=== PATIENT | female | born 1995 | race Caucasian/White ===

== ENCOUNTER 2019-04-03 10:19 | Emergency (ER) | payer BC, OTHER, SELFPAY ==
[2019-04-03 10:27] VITALS: BP 102/59; PULSE 59; RESP 16; TEMP 36.8; O2SAT 100
--- NOTE | 2019-04-03 10:40 | ED.URI ---
HPI - URI/Sore Throat General Chief Complaint: Upper Respiratory Infection Stated Complaint: sore throat/cough/stuffy nose Time Seen by Provider: 04/03/19 10:42 Source: patient and RN notes reviewed Mode of arrival: ambulatory Limitations: no limitations History of Present Illness HPI Narrative: 24 female presents with 3-day history of cough, sore throat, runny nose, chills. Reports she was exposed to influenza A. Denies taking any lnse-vib-ghxdjam medications. MD elicited complaint: sore throat Related Data Home Medications Medication Instructions Recorded Confirmed norethindrone-e.estradiol-iron tablet 04/03/19 [03/23 (28)] Allergies Allergy/AdvReac Type Severity Reaction Status Date / Time latex Allergy Mild Verified 09/10/17 17:40 CEPHALEXIN MONOHYDRATE Allergy Unknown Uncoded 09/10/17 17:40 Review of Systems Review of Systems: Narrative: CONSTITUTIONAL: Reports malaise, chills. Denies sweats, or fever. EYES: Denies visual changes, redness, or discharge. ENT: Reports rhinorrhea, congestion, sore throat. Denies sinus pain, otalgiat. CARDIOVASCULAR: Denies chest pain, palpitations, or edema. RESPIRATORY: Reports cough, worse at night. Denies dyspnea. GASTROINTESTINAL: Denies abdominal pain, nausea, vomiting, diarrhea SKIN: Denies rash or itching. MUSCULOSKELETAL: Denies myalgia. NEUROLOGIC: Denies headache. All systems reviewed & are unremarkable except as noted in HPI and below PMFSH Comments At time of signature, agree with nursing past medical, surgical, social and family history. There is no relevant family history pertinent to the presenting complaint Exam Narrative: Exam Narrative: GENERAL: Well-appearing, well-nourished, and in no acute distress. HEAD: Normocephalic, atraumatic. EYES: PERRLA, conjunctivae clear, and EOMI. ENT: Nares clear, turbinates edematous and erythematous, clear discharge. Mucous membranes moist. TM pearly burton with dull light reflex bilaterally; no tragal tenderness. Oropharynx erythematous without lesions. Tonsils not enlarged and without exudate, no drooling, no hoarseness, no trismus. NECK: Supple. No lymphadenopathy CHEST: Clear to auscultation, breath sounds equal. No wheezing, rhonchi, rales, or stridor. No respiratory distress, speaks in full sentences. HEART: Regular rate and rhythm. No murmur heard. Normal peripheral pulses. SKIN: Warm, dry, no rash. NEURO: Alert and oriented x3. PSYCH: Normal mood and affect Course Course Emergency Course: Patient is aware of diagnosis, understands and agrees to treatment plan. Anticipatory guidance given. Patient agrees to follow-up as directed and is aware of reasons to seek care at the emergency department. Portions of this record may have been created with voice recognition software Vital Signs Vital signs: Vital Signs Temperature 98.2 F 04/03/19 10:27 Pulse Rate 59 L 04/03/19 10:27 Respiratory Rate 16 04/03/19 10:27 Blood Pressure 102/59 L 04/03/19 10:27 Pulse Oximetry 100 04/03/19 10:27 Temperature 98.2 F 04/03/19 10:27 Pulse Rate 59 L 04/03/19 10:27 Respiratory Rate 16 04/03/19 10:27 Blood Pressure 102/59 L 04/03/19 10:27 Pulse Oximetry 100 04/03/19 10:27 Reviewed. Mean arterial pressure 73 MDM - URI/Sore Throat MDM Narrative Medical decision making narrative: Differential diagnosis considered: Strep pharyngitis, allergic rhinitis, upper respiratory tract infection, sinusitis, rhinosinusitis, nasopharyngitis. viral pharyngitis, otitis media, otitis externa, pneumonia, bronchitis, viral cough syndrome, viral syndrome, and influenza. Exam findings show no acute concerns or changes; patient is non-toxic appearing and is in no distress. Patient is appropriate for outpatient treatment and follow-up. Lab Data Attestation: I reviewed the patient's lab results. Labs: Strep Screen Presumptive Negative *(Reference Range: Negative)* Critical Care Time Crit
== END 2019-04-03 11:04 | disposition home or self-care (01) ==
PROVIDERS: Emergency Provider Nurse Practitioner
DX: J06.9 Acute upper respiratory infection, unspecified (principal)
CPT/HCPCS: 87081; 87880; 99213; G0463

== ENCOUNTER 2020-05-09 13:59 | Emergency (ER) | payer BC, OTHER, SELFPAY ==
[2020-05-09 14:08] VITALS: BP 114/76; PULSE 87; RESP 12; TEMP 36.7; O2SAT 99
--- NOTE | 2020-05-09 14:21 | ED.GENADULT ---
HPI - General Adult General Chief complaint: Eye Problems Stated complaint: eye irritation Time Seen by Provider: 05/09/20 14:18 Source: patient and RN notes reviewed Mode of arrival: ambulatory Limitations: no limitations History of Present Illness HPI narrative: 25-year-old female presents with complaints of rash around eyes for the past 1.5 weeks. Elo reports itching, dry skin, and redness around eye, symptoms are worse in the am upon awakening with puffiness and tearing. Renew lotion without relief. Denies new changes in personal hygiene products or laundry detergent. No new foods or medications. No swelling, burning, bleeding, or drainage. Denies fever, chills, headaches, myalgia, facial swelling, or tongue swelling. Denies chest pain or dyspnea. Tolerating po intake well. LMP unknown due to daily control. Remains active. The patient reports she have not been diagnosed with COVID-19. The patient reports she is not waiting for the results of a COVID-19 lab test. The patient reports she do not have chills, weakness, or fatigue. The patient reports she do not have a new or worsening cough or shortness of breath. The patient reports she do not have any rhinorrhea, congestion, sore throat, loss of taste or smell, nausea, vomiting, abdominal pain, and diarrhea. Denies recent traveling. Denies concerns for COVID-19 or exposures been home with limited outdoor exposure except for essential household needs, work, and return home. At this time, patient is not suspected of having COVID-19. Some parts of this dictation were generated by voice recognition software and may contain typographical and/or grammatical inaccuracies. Related Data Home Medications Medication Instructions Recorded Confirmed norethindrone-e.estradiol-iron 1 tablet PO DAILY 04/03/19 05/09/20 [03/23 (28)] Allergies Allergy/AdvReac Type Severity Reaction Status Date / Time latex Allergy Mild Rash Verified 05/09/20 14:11 CEPHALEXIN MONOHYDRATE Allergy Unknown Rash Uncoded 05/09/20 14:11 Review of Systems Review of Systems: Narrative: CONSTITUTIONAL: Denies fever, chills, sweats. EYES: Denies visual changes, redness, discharge. ENT: Denies rhinorrhea, congestion, sore throat, otalgia. CARDIOVASCULAR: Denies chest pain, palpitations, edema. RESPIRATORY: Denies dyspnea, wheezing, cough. GASTROINTESTINAL: Denies abdominal pain, nausea, vomiting, diarrhea. SKIN: Complains of rash around eyes. Denies drainage. MUSCULOSKELETAL: Denies acute back pain, joint pain, or myalgia. NEUROLOGIC: Denies numbness or focal weakness. PSYCHIATRIC: Denies anxiety or depression. All other systems reviewed & are unremarkable except as noted in HPI and below. [facility] Past Medical History Medical History (Updated 05/10/20 @ 00:00 by Nicolas Hogan) No significant past medical history Surgical History Surgical History (Updated 05/09/20 @ 14:43 by CURTIS Arnett) History of adenoidectomy History of tonsillectomy Family History Family History (Updated 05/09/20 @ 14:44 by CURTIS Arnett) Father Skin cancer (melanoma) Diabetes mellitus Mother Diabetes mellitus Asthma Cervical cancer Social History Social History (Updated 05/09/20 @ 14:45 by CURTIS Arnett) Smoking status: Never smoker Smokeless tobacco user: chewing tobacco Second hand tobacco smoke exposure: No Alcohol intake: former Alcohol use details: Last drink over a year ago Substance use: current Substance use type: marijuana Living arrangements: with family Occupation/Education: occupation Gender identity (if verbalized by the patient): Female Sexual Orientation (if Verbalized by the Patient): Straight or Heterosexual Comments At time of signature, agree with nurse past medical, surgical, social, and family history. There is no relevant family history pertinent to the presenting complaint. Exam Narrative: Exa
== END 2020-05-09 14:57 | disposition home or self-care (01) ==
PROVIDERS: Emergency Provider Nurse Practitioner Family
DX: L30.9 Dermatitis, unspecified (principal)
CPT/HCPCS: 99213; G0463

== ENCOUNTER 2020-07-11 09:40 | Emergency (ER) | payer BC, OTHER, SELFPAY ==
[2020-07-11 09:41] VITALS: BP 109/60; PULSE 86; RESP 20; TEMP 36.4; O2SAT 100
--- NOTE | 2020-07-11 10:46 | ED.GENADULT ---
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 Based on the presentation I agree with this patient also notes some seasonal allergies with rhinorrhea and congestion denies fever or other URI symptoms or sick contacts attempted some allergy medicine with minimal improvement presents in no distress Related Data Home Medications Medication Instructions Recorded Confirmed norethindrone-e.estradiol-iron 1 tablet PO DAILY 04/03/19 05/09/20 [03/23 (28)] Allergies Allergy/AdvReac Type Severity Reaction Status Date / Time latex Allergy Mild Rash Verified 07/11/20 10:16 CEPHALEXIN MONOHYDRATE Allergy Unknown Rash Uncoded 05/09/20 14:11 Review of Systems Review of Systems: All systems reviewed & are unremarkable except as noted in HPI and below PMFSH Past Medical History Medical History No significant past medical history Surgical History Surgical History History of adenoidectomy History of tonsillectomy Family History Family History (Updated 05/09/20 @ 14:44 by CURTIS Arnett) Father Skin cancer (melanoma) Diabetes mellitus Mother Diabetes mellitus Asthma Cervical cancer Social History Social History Smoking status: Never smoker Smokeless tobacco user: chewing tobacco Second hand tobacco smoke exposure: No Alcohol intake: former Substance use: current Substance use type: marijuana Gender identity (if verbalized by the patient): Female Exam Narrative: Exam Narrative: GENERAL: Well-appearing, well-nourished, and in no acute distress. HEAD: Normocephalic, atraumatic. EYES: PERRLA and EOMI. patient with some dry skin to the upper eyelids no other abnormalities noted ENT: Nares clear, no rhinorrhea or epistaxis. Mucous membranes moist. CHEST: Clear to auscultation. No respiratory distress. No wheezes rales or rhonchi HEART: Regular rate and rhythm. No murmur heard. EXTREMITIES: Normal range of motion. No edema. SKIN: Warm, dry, patchy dry area to the right side of the neck as well as the dorsal surfaces of the hands NEURO: No focal deficits. Alert and oriented x3. PSYCH: Normal mood and affect. Course Course Emergency Course: Patient in the room no distress aware of case findings treatment plan and diagnosis patient advised to pay attention to the chemicals she is using to try and identify the offending agent it is likely something that she is coming in contact with at work patient will be treated accordingly and referred to primary care and has been provided with reasons to return Vital Signs Vital signs: Vital Signs Temperature 97.5 F L 07/11/20 09:41 Pulse Rate 86 07/11/20 09:41 Respiratory Rate 20 07/11/20 09:41 Blood Pressure 109/60 07/11/20 09:41 Pulse Oximetry 100 07/11/20 09:41 Temperature 97.5 F L 07/11/20 09:41 Pulse Rate 86 07/11/20 09:41 Respiratory Rate 20 07/11/20 09:41 Blood Pressure 109/60 07/11/20 09:41 Pulse Oximetry 100 07/11/20 09:41 Medical Decision Making MDM Narrative Medical decision making narrative: ABCs and vital signs intact and stable Vital Signs Vital Signs: Vital Signs Temperature 97.5 F L 07/11/20 09:41 Pulse Rate 86 07/11/20 09:41 Respiratory Rate 20 07/11/20 09:41 Blood Pressure 109/60 07/11/20 09:41 Pulse Oximetry 100 07/11/20 09:41
== END 2020-07-11 10:54 | disposition home or self-care (01) ==
PROVIDERS: Emergency Provider Emergency Medicine
DX: L25.9 Unspecified contact dermatitis, unspecified cause (principal); F17.220 Nicotine dependence, chewing tobacco, uncomplicated
CPT/HCPCS: 87081; 87880; 99283

== ENCOUNTER 2020-07-27 10:19 | Emergency (ER) | payer BC, OTHER, SELFPAY ==
--- NOTE | 2020-07-27 10:25 | ED.GENADULT ---
HPI - General Adult General Chief complaint: Upper Respiratory Infection Stated complaint: runny nose/sore throat/headache/earache Source: patient, RN notes reviewed and old records reviewed Mode of arrival: ambulatory Limitations: no limitations History of Present Illness HPI narrative: 25-year-old female who presents to [facility] with complaints of 2-day duration of runny nose, sore throat, headaches, and earaches. Patient states she has been taking Zyrtec for her symptoms with no improvement. Patient denies any known fevers states she did check her temp yesterday and it was 98.6F but she has experienced some chills and sweats at night. Patient denies any cough, denies any wheezing or shortness of breath. Patient states no one else in household ill at this time. Patient has not had Covid vaccination. MD complaint: URI symptoms Onset (ago): day(s) (2) Location: head and face Related Data Home Medications Medication Instructions Recorded Confirmed norethindrone-e.estradiol-iron 1 tablet PO DAILY 04/03/19 05/09/20 [03/23 (28)] Allergies Allergy/AdvReac Type Severity Reaction Status Date / Time latex Allergy Mild Rash Verified 07/11/20 10:16 CEPHALEXIN MONOHYDRATE Allergy Unknown Rash Uncoded 05/09/20 14:11 Review of Systems Review of Systems: Narrative: CONSTITUTIONAL: Denies known fever, positive chills, or sweats. EYES: Denies visual changes, redness, or discharge. ENT: Positive rhinorrhea, congestion, sore throat, bilateral ear otalgia. CARDIOVASCULAR: Denies chest pain, palpitations, or edema. RESPIRATORY: Denies cough or dyspnea. GASTROINTESTINAL: Denies abdominal pain, nausea, vomiting, or diarrhea. GENITOURINARY: Denies dysuria or hematuria. SKIN: Denies rash or itching. MUSCULOSKELETAL: Denies back pain, joint pain, or myalgia. NEUROLOGIC: Positive frontal headache, denies any numbness, or weakness. PSYCHIATRIC: Positive for history of anxiety or depression. All systems reviewed & are unremarkable except as noted in HPI and below PMFSH Past Medical History Medical History (Updated 07/29/20 @ 11:12 by Eleonora Zabala NP) Anxiety and depression Eczema UTI (urinary tract infection) Surgical History Surgical History (Updated 07/29/20 @ 11:14 by Eleonora Zabala NP) History of adenoidectomy History of dental surgery gums History of placement of ear tubes History of tonsillectomy Family History Family History (Updated 07/29/20 @ 11:19 by Eleonora Zabala NP) Father Skin cancer (melanoma) Diabetes mellitus Hypertension Carcinoma of colon Mother Diabetes mellitus Asthma Cervical cancer Hypertension History of blood clots Social History Social History (Updated 07/27/20 @ 11:03 by Eleonora Zabala NP) Smoking status: Former smoker Tobacco type: cigarettes Second hand tobacco smoke exposure: No Additional smoking assessment comments: Quit December 2014 Alcohol intake: former Substance use: current Substance use type: marijuana Last use: Rare use Living arrangements: with family Gender identity (if verbalized by the patient): Female Comments At time of signature, agree with nursing past medical, surgical, social and family history. There is no relevant family history pertinent to the presenting complaint Exam Narrative: Exam Narrative: GENERAL: Well-appearing, well-nourished, and in no acute distress. HEAD: Normocephalic, atraumatic. EYES: PERRLA and EOMI. ENT: Nares red swollen turbinates with clear rhinorrhea no epistaxis. Mucous membranes moist. TMs normal with dull light reflex, throat mild redness with no lesions or exudates, post nasal drainage noted to back of throat. NECK: Supple.no lymphadenopathy CHEST: Clear to auscultation. No respiratory distress.SAO2 100% on room air. HEART: Regular rate and rhythm. No murmur heard. Normal peripheral pulses. ABDOMEN: Soft, nontender, nondistended, normal active bowel sounds. EXTREMITIES: Norm
[2020-07-27 10:32] VITALS: BP 119/64; PULSE 69; RESP 16; TEMP 37; O2SAT 100
== END 2020-07-27 11:14 | disposition home or self-care (01) ==
PROVIDERS: Emergency Provider Registered Nurse
DX: J06.9 Acute upper respiratory infection, unspecified (principal)
CPT/HCPCS: 87081; 87880; 99213; G0463

== ENCOUNTER 2020-09-27 12:41 | Emergency (ER) | payer BC, OTHER, SELFPAY ==
[2020-09-27 12:50] VITALS: BP 107/64; PULSE 90; RESP 16; TEMP 37.1; O2SAT 98
--- NOTE | 2020-09-27 13:54 | ED.GENADULT ---
HPI - General Adult General Chief complaint: Upper Respiratory Infection Stated complaint: cough Time Seen by Provider: 09/27/20 13:47 Source: patient and RN notes reviewed Mode of arrival: ambulatory Limitations: no limitations History of Present Illness HPI narrative: Patient presents today complaining of sore and scratchy throat, chest tightness with shortness of breath intermittently, cough, rhinorrhea, sweats. Symptoms again last night and worse today. Patient states her shortness of breath and chest tightness has resolved currently. Denies any sick contacts, fever, loss of taste or smell, ear pain. She currently rates her sore throat 5/10 and has been using cough drops without relief. Reports 2 of her children also have sore throats. MD complaint: Sore throat, cough Related Data Home Medications Medication Instructions Recorded Confirmed norethindrone-e.estradiol-iron 1 tablet PO DAILY 04/03/19 05/09/20 [03/23 (28)] Allergies Allergy/AdvReac Type Severity Reaction Status Date / Time latex Allergy Mild Rash Verified 09/27/20 13:48 CEPHALEXIN MONOHYDRATE Allergy Unknown Rash Uncoded 09/27/20 13:48 Review of Systems Review of Systems: Narrative: CONSTITUTIONAL: Denies body aches, fever, chills. + Months EYES: Denies visual changes, redness, or discharge. ENT: Denies congestion, or otalgia.+ Sore throat, rhinorrhea CARDIOVASCULAR: Denies chest pain, palpitations, or edema. RESPIRATORY: + Cough, chest tightness, shortness of breath GASTROINTESTINAL: Denies abdominal pain, nausea, vomiting, or diarrhea. GENITOURINARY: Denies dysuria or hematuria. SKIN: Denies rash, itching, or wounds. MUSCULOSKELETAL: Denies back pain, joint pain, or myalgia. NEUROLOGIC: Denies headache, numbness, tingling, or weakness. PSYCH: Denies depression or anxiety. [facility] Past Medical History Medical History Anxiety and depression Eczema UTI (urinary tract infection) Surgical History Surgical History History of adenoidectomy History of dental surgery gums History of placement of ear tubes History of tonsillectomy Family History Family History Father Skin cancer (melanoma) Diabetes mellitus Hypertension Carcinoma of colon Mother Diabetes mellitus Asthma Cervical cancer Hypertension History of blood clots Social History Social History Smoking status: Former smoker Tobacco type: cigarettes Second hand tobacco smoke exposure: No Additional smoking assessment comments: Quit December 2014 Alcohol intake: former Alcohol use details: Last drink over a year ago Substance use: current Substance use type: marijuana Last use: Rare use Gender identity (if verbalized by the patient): Female Comments At time of signature, I have reviewed and agree with nursing past medical, surgical, social and family history unless otherwise noted. Please see nursing chart for further information. There is no relevant family history pertinent to the presenting complaint Exam Narrative: Exam Narrative: GENERAL: Well-appearing, well-nourished, and in no acute distress. HEAD: Normocephalic, atraumatic. EYES: EOMI. No redness or drainage. Conjunctivae normal. ENT: Mucous membranes pink and moist. Nares clear. No rhinorrhea. TMs normal bilaterally. Throat normal. Uvula midline. NECK: Normal AROM. Supple. No lymphadenopathy. CHEST: No respiratory distress. Clear to auscultation. HEART: Regular rate and rhythm. No murmur appreciated. Normal peripheral pulses. EXTREMITIES: Normal range of motion. No edema. SKIN: Warm, dry, no rash. Capillary refill normal. Normal skin turgor. NEURO: No focal deficits. Alert and oriented x3. Gait steady. PSYCH: Normal affect. No si
[2020-09-28 18:39] LABS: SARS-CoV-2 RNA PCR Negative
== END 2020-09-27 14:40 | disposition home or self-care (01) ==
PROVIDERS: Emergency Provider Nurse Practitioner
DX: J06.9 Acute upper respiratory infection, unspecified (principal); Z20.822 Contact with and (suspected) exposure to COVID-19; Z87.891 Personal history of nicotine dependence
CPT/HCPCS: 87081; 87426; 87880; 99213; C9803; G0463; U0003; U0005

== ENCOUNTER 2020-11-10 15:22 | Emergency (ER) | payer BC, OTHER, SELFPAY ==
--- NOTE | 2020-11-10 15:30 | ED.SKABFB ---
HPI - Skin/Abscess/Foreign Bdy General Chief complaint: Extremity Problem,Nontraumatic Stated complaint: pos toe infection Time Seen by Provider: 11/10/20 15:30 Source: patient and RN notes reviewed History of Present Illness HPI narrative: Patient is a 25-year-old female who presents the urgent care with complaints of a possible toe infection. Patient states that she recently had a pedicure and she believes they attempted to remove an ingrown toenail . Patient states she had a pedicure on Saturday and noticed some redness and swelling a couple days ago. Patient states that it started to drain yesterday and causing her more pain. Patient has put Neosporin to the area. Denies any fever, chills, nausea, vomiting. No other acute complaints. No acute distress noted. Patient read the plan of care. Some parts of this dictation were generated by voice recognition software and may contain typographical and/or grammatical inaccuracies. Related Data Allergies Allergy/AdvReac Type Severity Reaction Status Date / Time latex Allergy Mild Rash Verified 11/10/20 15:40 CEPHALEXIN MONOHYDRATE Allergy Unknown Rash Uncoded 11/10/20 15:40 Review of Systems Review of Systems: CONSTITUTIONAL: Denies fever, chills, or sweats. EYES: Denies visual changes, redness, or discharge. ENT: Denies rhinorrhea, congestion, sore throat, or otalgia. CARDIOVASCULAR: Denies chest pain, palpitations, or edema. RESPIRATORY: Denies cough or dyspnea. GASTROINTESTINAL: Denies abdominal pain, nausea, vomiting, or diarrhea. GENITOURINARY: Denies dysuria or hematuria. SKIN: Reports of redness, swelling and drainage from the left great toenail MUSCULOSKELETAL: Denies back pain, joint pain, or myalgia. NEUROLOGIC: Denies headache, numbness, or weakness. All other systems reviewed are negative, except as documented in HPI. [facility] Past Medical History Medical History Anxiety and depression Eczema UTI (urinary tract infection) Surgical History Surgical History History of adenoidectomy History of dental surgery gums History of placement of ear tubes History of tonsillectomy Family History Family History Father Skin cancer (melanoma) Diabetes mellitus Hypertension Carcinoma of colon Mother Diabetes mellitus Asthma Cervical cancer Hypertension History of blood clots Social History Social History Smoking status: Former smoker Tobacco type: cigarettes Second hand tobacco smoke exposure: No Additional smoking assessment comments: Quit December 2014 Alcohol intake: former Alcohol use details: Last drink over a year ago Substance use: current Substance use type: marijuana Last use: Rare use Gender identity (if verbalized by the patient): Female Sexual Orientation (if Verbalized by the Patient): Straight or Heterosexual Comments At the time of my signature, I reviewed and agree with the nursing past medical, surgical, social, and family history. There is no relevant family history pertinent to the patient complaint. Exam Narrative: GENERAL: This is a well-nourished, well-developed patient, in no apparent distress. HEAD: normocephalic, atraumatic. EYES: PERRL. Sclera clear/white. Vision is grossly intact. EARS: External ears normal NOSE: External nose normal with no obvious nasal discharge, nares without redness, no rhinorrhea. THROAT: Mucous membranes moist NECK: Neck supple CARDIOVASCULAR: Regular rate and rhythm without murmurs, gallops, or rubs. RESPIRATORY: Clear to auscultation. Breath sounds equal bilaterally. No wheezes, rales, or rhonchi. SKIN: Paronychia noted to the medial aspect of the left great toe with scant drainage. Warm, intact with no suspicious lesions or rash, good textur
[2020-11-10 15:36] VITALS: BP 101/66; PULSE 63; RESP 16; TEMP 36.5; O2SAT 100
== END 2020-11-10 15:55 | disposition home or self-care (01) ==
PROVIDERS: Emergency Provider Nurse Practitioner Family
DX: L03.032 Cellulitis of left toe (principal); Z87.891 Personal history of nicotine dependence
CPT/HCPCS: 99213; G0463

== ENCOUNTER 2020-11-16 09:52 | Emergency (ER) | payer BC, OTHER, SELFPAY ==
[2020-11-16 10:01] VITALS: BP 103/62; PULSE 87; RESP 16; TEMP 36.6; O2SAT 99
--- NOTE | 2020-11-16 10:59 | ED.URI ---
HPI - URI/Sore Throat General Chief Complaint: Upper Respiratory Infection Stated Complaint: sore throat Time Seen by Provider: 11/16/20 10:51 Source: patient and RN notes reviewed Mode of arrival: ambulatory Limitations: no limitations History of Present Illness HPI Narrative: Patient presents today complaining of a 2-day history of worsening allergy symptoms to include sneezing, watery eyes, rhinorrhea, left ear pressure. She has been trying Eileen, Claritin, Flonase, [place] pot with only mild relief. MD elicited complaint: rhinorrhea and nasal congestion Related Data Allergies Allergy/AdvReac Type Severity Reaction Status Date / Time latex Allergy Mild Rash Verified 11/10/20 15:40 CEPHALEXIN MONOHYDRATE Allergy Unknown Rash Uncoded 11/10/20 15:40 Review of Systems Review of Systems: CONSTITUTIONAL: Denies body aches, fever, chills, or sweats. EYES: Denies visual changes, redness, or discharge.+ Watery eyes ENT: Denies congestion, sore throat, or otalgia.+ Rhinorrhea, sneezing, left ear pressure CARDIOVASCULAR: Denies chest pain, palpitations, or edema. RESPIRATORY: Denies cough or dyspnea. GASTROINTESTINAL: Denies abdominal pain, nausea, vomiting, or diarrhea. GENITOURINARY: Denies dysuria or hematuria. SKIN: Denies rash, itching, or wounds. MUSCULOSKELETAL: Denies back pain, joint pain, or myalgia. NEUROLOGIC: Denies headache, numbness, tingling, or weakness. PSYCH: Denies depression or anxiety. [facility] Past Medical History Medical History Anxiety and depression Eczema UTI (urinary tract infection) Surgical History Surgical History History of adenoidectomy History of dental surgery gums History of placement of ear tubes History of tonsillectomy Family History Family History Father Skin cancer (melanoma) Diabetes mellitus Hypertension Carcinoma of colon Mother Diabetes mellitus Asthma Cervical cancer Hypertension History of blood clots Social History Social History Smoking status: Former smoker Tobacco type: cigarettes Second hand tobacco smoke exposure: No Additional smoking assessment comments: Quit December 2014 Alcohol intake: former Alcohol use details: Last drink over a year ago Substance use: current Substance use type: marijuana Last use: Rare use Gender identity (if verbalized by the patient): Female Sexual Orientation (if Verbalized by the Patient): Straight or Heterosexual Comments At time of signature, I have reviewed and agree with nursing past medical, surgical, social and family history unless otherwise noted. Please see nursing chart for further information. There is no relevant family history pertinent to the presenting complaint Exam Narrative: GENERAL: Well-appearing, well-nourished, and in no acute distress. HEAD: Normocephalic, atraumatic. EYES: EOMI. PERRL. No redness or drainage. Conjunctivae normal. Watery eyes. ENT: Mucous membranes pink and moist. Nares clear. No rhinorrhea. TMs normal bilaterally. Throat normal with thick postnasal drainage. Uvula midline. NECK: Normal AROM. Supple. No lymphadenopathy. CHEST: No respiratory distress. Clear to auscultation. HEART: Regular rate and rhythm. No murmur appreciated. Normal peripheral pulses. EXTREMITIES: Normal range of motion. No edema. SKIN: Warm, dry, no rash. Capillary refill normal. Normal skin turgor. NEURO: No focal deficits. Alert and oriented x3. Gait steady. PSYCH: Normal affect. No signs of depression or anxiety. Course Vital Signs Vital signs: Vital Signs Temperature 97.8 F 11/16/20 10:01 Pulse Rate 87 11/16/20 10:01 Respiratory Rate 16 11/16/20 10:01 Blood Pressure 103/62 11/16/20 10:01 Pulse Oximetry 99 11/16/20
== END 2020-11-16 11:12 | disposition home or self-care (01) ==
PROVIDERS: Emergency Provider Nurse Practitioner
DX: J30.2 Other seasonal allergic rhinitis (principal); Z87.891 Personal history of nicotine dependence
CPT/HCPCS: 99213; G0463

== ENCOUNTER 2020-12-05 11:23 | Emergency (ER) | payer BC, OTHER, SELFPAY ==
[2020-12-05 11:28] VITALS: BP 106/72; PULSE 96; RESP 16; TEMP 36.8; O2SAT 99
--- NOTE | 2020-12-05 11:50 | ED.SKABFB ---
HPI - Skin/Abscess/Foreign Bdy General Chief complaint: Skin/Abscess/Foreign Body Stated complaint: Rash Time Seen by Provider: 12/05/20 11:59 Source: patient Mode of arrival: ambulatory Limitations: no limitations History of Present Illness HPI narrative: Patient presents with a chronic rash to both her hands and her neck. Patient has been seen and evaluated here 2 times previously for the same symptoms. Patient states the prednisone works for a temporary fix but the rash does come back. Patient states she did call the decision science analyst but has 2 to 3 months before she can get an appointment. Patient denies any respiratory issues and presents as an itchy rash to both her hands. 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 Related Data Allergies Allergy/AdvReac Type Severity Reaction Status Date / Time latex Allergy Mild Rash Verified 12/05/20 11:35 CEPHALEXIN MONOHYDRATE Allergy Unknown Rash Uncoded 12/05/20 11:35 Review of Systems Review of Systems: CONSTITUTIONAL: Denies fever, chills, or sweats. EYES: Denies visual changes, redness, or discharge. ENT: Denies rhinorrhea, congestion, sore throat, or otalgia. CARDIOVASCULAR: Denies chest pain, palpitations, or edema. RESPIRATORY: Denies cough or dyspnea. GASTROINTESTINAL: Denies abdominal pain, nausea, vomiting, or diarrhea. GENITOURINARY: Denies dysuria or hematuria. SKIN: Denies rash or itching. MUSCULOSKELETAL: Denies back pain, joint pain, or myalgia. NEUROLOGIC: Denies headache, numbness, or weakness. PSYCHIATRIC: Denies anxiety or depression. [facility] Past Medical History Medical History Anxiety and depression Eczema UTI (urinary tract infection) Surgical History Surgical History History of adenoidectomy History of dental surgery gums History of placement of ear tubes History of tonsillectomy Family History Family History Father Skin cancer (melanoma) Diabetes mellitus Hypertension Carcinoma of colon Mother Diabetes mellitus Asthma Cervical cancer Hypertension History of blood clots Social History Social History Smoking status: Former smoker Tobacco type: cigarettes Second hand tobacco smoke exposure: No Additional smoking assessment comments: Quit December 2014 Alcohol intake: former Alcohol use details: Last drink over a year ago Substance use: current Substance use type: marijuana Last use: Rare use Gender identity (if verbalized by the patient): Female Sexual Orientation (if Verbalized by the Patient): Straight or Heterosexual Comments At time of signature, agree with nursing past medical, surgical, social and family history. There is no relevant family history pertinent to the presenting complaint Exam Narrative: GENERAL: Well-appearing, well-nourished, and in no acute distress. HEAD: Normocephalic, atraumatic. EYES: PERRLA and EOMI. ENT: Nares clear, no rhinorrhea or epistaxis. Mucous membranes moist. NECK: Supple. CHEST: Clear to auscultation. No respiratory distress. HEART: Regular rate and rhythm. No murmur heard. Normal peripheral pulses. ABDOMEN: Soft, nontender, nondistended, normal active bowel sounds. EXTREMITIES: Normal range of motion. No edema. SKIN: Warm, dry, itchy rash to both hands and the back of her neck No induration fluctuance or drainage. No surrounding erythremia. No lesions and TTP. No specific pattern or dermatomal distribution. Several different stages with occasional scabbing and excoriation. Spares palms and soles. Findings consistent with contact dermatitis. NEURO: No focal deficits. Alert and oriented x3. [place] Coma Scale Eye Opening: Spontaneous 4 Dashawn Coma Scale Motor: Obeys Commands 6 Dashawn Coma Scale
== END 2020-12-05 12:10 | disposition home or self-care (01) ==
PROVIDERS: Emergency Provider Nurse Practitioner Family
DX: L25.9 Unspecified contact dermatitis, unspecified cause (principal); Z87.891 Personal history of nicotine dependence
CPT/HCPCS: 99213; G0463

== ENCOUNTER 2021-09-12 08:58 | Emergency (ER) | payer BC, OTHER, SELFPAY ==
[2021-09-12 09:09] VITALS: BP 120/70; PULSE 63; RESP 16; TEMP 36.6; O2SAT 99
--- NOTE | 2021-09-12 09:09 | ED.URI ---
HPI - URI/Sore Throat General Chief Complaint: Upper Respiratory Infection Stated Complaint: sob Time Seen by Provider: 09/12/21 09:17 Source: patient, family, RN notes reviewed and old records reviewed Mode of arrival: ambulatory Limitations: no limitations History of Present Illness HPI Narrative: 26-year-old female presents to the [facility] with complaints of shortness of breath. Patient states this started yesterday at [place] when she thinks she smelled some strawberries with mold on them. Denies fevers. No chest pain. Denies abdominal pain, nausea, vomiting or diarrhea. Denies any past medical or surgical history Related Data Allergies Allergy/AdvReac Type Severity Reaction Status Date / Time latex Allergy Mild Rash Verified 09/12/21 09:14 CEPHALEXIN MONOHYDRATE Allergy Unknown Rash Uncoded 09/12/21 09:14 Review of Systems Review of Systems: All systems reviewed & are unremarkable except as noted in HPI and below Constitutional: Constitutional: Reports no additional constitutional complaints, Denies chills, Denies fever(s) and Denies headache(s) Eyes: Eyes: Reports no additional eye complaints ENT: Reports as per HPI, Denies vertigo, Denies dizziness, Denies headache(s), Denies nasal congestion and Denies sore throat Cardiovascular: Cardiovascular: Reports no additional cardiovascular complaints, Denies chest pain, Denies syncope, Denies rapid heart rate and Denies dyspnea Respiratory: Respiratory: Reports as per HPI, Reports cough, Reports dyspnea and Denies wheezing Gastrointestinal: Gastrointestinal: Reports no additional gastrointestinal complaints, Denies abdominal pain, Denies diarrhea, Denies nausea and Denies vomiting Musculoskeletal: Musculoskeletal: Reports no additional musculoskeletal complaints and Denies numbness Integumentary/Breasts: Skin/Breast: Reports system reviewed and no additional complaints, except as docu Neurologic: Reports system reviewed and no additional complaints, except as documented, Denies vertigo, Denies dizziness, Denies syncope, Denies headache(s), Denies focal weakness and Denies numbness Psychiatric: Psychiatric: Reports no additional psychiatric complaints Allergic/Immunologic: Allergic/Immunologic: Reports no additional allergic/immunologic complaints and Denies wheezing PMFSH Past Medical History Medical History Anxiety and depression Eczema UTI (urinary tract infection) Surgical History Surgical History History of adenoidectomy History of dental surgery gums History of placement of ear tubes History of tonsillectomy Family History Family History Father Skin cancer (melanoma) Diabetes mellitus Hypertension Carcinoma of colon Mother Diabetes mellitus Asthma Cervical cancer Hypertension History of blood clots Social History Social History Smoking status: Former smoker Tobacco type: cigarettes Second hand tobacco smoke exposure: No Additional smoking assessment comments: Quit December 2014 Alcohol intake: former Alcohol use details: Last drink over a year ago Substance use: current Substance use type: marijuana Last use: Rare use Gender identity (if verbalized by the patient): Female Sexual Orientation (if Verbalized by the Patient): Straight or Heterosexual Comments At the time of my signature, I reviewed and agree with the nursing past medical, surgical, social, and family history. There is no relevant family history pertinent to the patient complaint. Exam Const: General: cooperative, healthy appearing, no acute distress, well developed and alert Nutritional Appearance: well nourished Orientation/consciousness: patient oriented x3 Limitations: no limitations HENMT: Head: normal to inspection
== END 2021-09-12 09:45 | disposition home or self-care (01) ==
PROVIDERS: Emergency Provider Nurse Practitioner
DX: J40 Bronchitis, not specified as acute or chronic (principal); Z87.891 Personal history of nicotine dependence
CPT/HCPCS: 99213; G0463

== ENCOUNTER 2021-09-22 08:19 | Outpatient (CLI) | payer BC, OTHER, SELFPAY ==
[2021-09-22 19:09] LABS: Basophils Absolute Auto 0.1 K/mm3 (0.0-0.1); Basophils Percent Auto 0.9 % (0.2-1.2); Eosinophils Absolute Auto 0.3 K/mm3 (0-0.3); Eosinophils Percent Auto 3.9 % (0-4.4); Hematocrit 44.9 % (37.0-47.0); Hemoglobin 14.3 g/dL (12.0-15.0); Immature Granulocyte Absolute 0.02 K/mm3 (0.00-0.031); Immature Granulocyte Percent A 0.3 % (0-0.5); Lymphocytes Absolute Auto 2.74 K/mm3 (0.9-3.2); Lymphocytes Percent Auto 39.7 % (18.3-44.2); Mean Corpuscular HGB Conc 31.8 g/dl (32-36); Mean Corpuscular Volume 94.3 fl (80-100); Mean Platelet Volume 11.1 fl (7.4-10.4); Monocytes Absolute Auto 0.6 K/mm3 (0.1-0.6); Monocytes Percent Auto 8.8 % (2.6-8.5); Neutrophils Absolute Auto 3.2 K/mm3 (1.3-6.7); Neutrophils Percent Auto 46.4 % (45.5-73.1); Platelet Count Result 242 k/mm3 (150-375); Red Blood Count 4.76 M/mm3 (4.2-5.4); Red Cell Distribution Width 13.4 % (11.5-14.5); White Blood Count 6.9 K/mm3 (4.5-10.0)
[2021-09-22 20:38] LABS: Alanine Aminotransferase 20 U/L (6-35); Albumin Level 4.6 g/dL (3.5-5.1); Alkaline Phosphatase 70 U/L (38-126); Anion Gap 9 mmol/L (8-16); Aspartate Amino Transferase 39 U/L (14-36); Bilirubin,Total 0.6 mg/dL (0.2-1.3); Blood Urea Nitrogen 10 mg/dL (7-17); Calcium 9.4 mg/dL (8.4-10.2); Carbon Dioxide 25 mmol/L (22-30); Chloride 108 mmol/L (98-107); Cholesterol 169 mg/dL (0-200); Estimated Glomerular Filt Rate > 60; Glucose 68 mg/dL (65-110); HDL Direct 66 mg/dL; Potassium 3.9 mmol/L (3.4-5.0); Sodium 142 mmol/L (137-145); Triglycerides 81 mg/dL (<150)
[2021-09-22 20:49] LABS: LDL Cholesterol Direct 64 mg/dL
== END 2021-09-22 08:20 | disposition home or self-care (01) ==
LOC: ANHGOSHLAB 08:20
PROVIDERS: PCP Internal Medicine; Visit Provider Clinical Nurse Specialist
DX: Z13.220 Encounter for screening for lipoid disorders (principal); Z13.228 Encounter for screening for other metabolic disorders; K59.00 Constipation, unspecified
CPT/HCPCS: 36415; 80053; 80061; 84443; 85025

== ENCOUNTER 2022-06-02 16:48 | Emergency (ER) | payer BC, OTHER, SELFPAY ==
[2022-06-02 17:05] VITALS: BP 121/67; PULSE 79; RESP 16; TEMP 36.6; O2SAT 100
--- NOTE | 2022-06-02 17:30 | ED.GENADULT ---
HPI - General Adult General Chief complaint: Upper Respiratory Infection Stated complaint: Cough/UTI Source: patient and RN notes reviewed History of Present Illness HPI narrative: 27-year-old female, 3 Para 2, presents other weeks , with complaints of congestion, right ear pain, fullness in both ears, and coughing. Patient states the symptoms have been going on since Saturday. Patient is also reporting burning and urinary frequency for the last 2 days. Patient denies any abdominal pain, vaginal bleeding, fevers, chills, chest pain, shortness of breath. Some parts of this dictation were generated by voice recognition software and may contain typographical and/or grammatical inaccuracies. Related Data Home Medications Medication Instructions Recorded Confirmed Daily 1 tablet PO DAILY 06/02/22 06/02/22 ondansetron HCl 4 mg tablet 4 mg PO DIRECTED 06/02/22 06/02/22 promethazine 12.5 mg tablet 12.5 mg PO DIRECTED 06/02/22 06/02/22 Allergies Allergy/AdvReac Type Severity Reaction Status Date / Time latex Allergy Mild Rash Verified 02/05/22 14:36 CEPHALEXIN MONOHYDRATE Allergy Unknown Rash Uncoded 02/05/22 14:36 Review of Systems Review of Systems: Pertinent positives and pertinent negatives per HPI. [facility] Past Medical History Medical History (Updated 06/02/22 @ 17:31 by Jennifer Elias APRN) Allergies Anxiety and depression Eczema UTI (urinary tract infection) Surgical History Surgical History History of adenoidectomy History of dental surgery gums History of placement of ear tubes History of tonsillectomy Family History Family History Father Skin cancer (melanoma) Diabetes mellitus Hypertension Carcinoma of colon Mother Diabetes mellitus Asthma Cervical cancer Hypertension History of blood clots Social History Social History (Updated 02/05/22 @ 14:43 by Alexandra Luciano CMA) Smoking status: Former smoker Tobacco type: cigarettes Second hand tobacco smoke exposure: No Additional smoking assessment comments: Quit December 2014 Alcohol intake: current Alcohol use details: glass of wine occasionally Substance use: former Substance use type: marijuana Last use: Rare use Lack of Transportation: No Lack of Food: Never True Current Housing: I Have Housing Concerned About Future Housing: No Difficulty Paying Gas/Electric Bills: No Difficulty Paying for Meds: No Currently Unemployed: No Education: High School Diploma/GED Difficulty w/ Childcare or Family Care: No Living arrangements: with family Occupation/Education: occupation Gender identity (if verbalized by the patient): Female Sexual Orientation (if Verbalized by the Patient): Straight or Heterosexual Comments At the time of my signature, I reviewed and agree with the nursing past medical, surgical, social, and family history. There is no relevant family history pertinent to the patient complaint. Exam Narrative: GENERAL: This is a well-nourished, well-developed patient, in no apparent distress. HEAD: normocephalic, atraumatic. EYES: PERRL. Sclera clear/white. Vision is grossly intact. EARS: External ears normal, auditory canals clear and without drainage, TMs normal without perforation. Hearing grossly intact. NOSE: External nose normal with no obvious nasal discharge, nares without redness, no rhinorrhea. THROAT: Mucous membranes moist, posterior pharynx clear. NECK: Neck supple, non-tender without lymphadenopathy, masses or thyromegaly. CARDIOVASCULAR: Regular rate and rhythm without murmurs, gallops, or rubs. RESPIRATORY: Clear to auscultation. Breath sounds equal bilaterally. No wheezes, rales, or rhonchi. GASTROINTESTINAL: Abdomen soft, non-tender, nondistended. Bowel sounds are active. No hepato-splenomegaly, or palpable masses. No guarding. SKI
== END 2022-06-02 17:39 | disposition home or self-care (01) ==
PROVIDERS: Emergency Provider Nurse Practitioner Family; PCP Internal Medicine
DX: J06.9 Acute upper respiratory infection, unspecified (principal); N39.0 Urinary tract infection, site not specified; Z87.891 Personal history of nicotine dependence; Z20.822 Contact with and (suspected) exposure to COVID-19
CPT/HCPCS: 81003; 87081; 87086; 87426; 87804; 87880; 99213; C9803; G0463

== ENCOUNTER 2022-09-25 13:14 | Outpatient (CLI) | payer BC, OTHER, SELFPAY ==
[2022-09-25 14:26] VITALS: BP 108/57; PULSE 70
[2022-09-25 14:30] VITALS: BP 103/57; PULSE 74
[2022-09-25 14:45] VITALS: BP 99/49; PULSE 71
[2022-09-25 14:57] LABS: Glucose Point of Care 69 mg/dl (65-105)
[2022-09-25 15:00] VITALS: BP 99/59; PULSE 67
--- NOTE | 2022-09-25 15:00 | PC.NURSE ---
Called Dr. Martin with pt status. Informed of dizziness and blurred vision late morning while driving, with a headache that is still there. Some pain in right side after vomiting this weekend and doing lot of work around the house. Blood glucose-69, BPs given. Tracing appropriate for gestational age. Orders received.
[2022-09-25 15:15] VITALS: BP 104/50; PULSE 72
[2022-09-25] MEDS: ACETAMINOPHEN 500 MG TABLET 1000 MG PO (15:21)
== END 2022-09-25 15:20 | disposition home or self-care (01) ==
LOC: ANHOBOP 13:46 → ANHOBPP 10-02 06:35
PROVIDERS: PCP Internal Medicine; Referring Provider Obstetrics & Gynecology; Visit Provider Obstetrics & Gynecology
DX: R42 Dizziness and giddiness (principal); H53.8 Other visual disturbances
CPT/HCPCS: 59025; 82948; 99199; A9270

== ENCOUNTER 2022-10-26 16:59 | Observation (INO) | payer BC, OTHER, SELFPAY ==
[2022-10-26 17:16] VITALS: BP 105/64; PULSE 85
[2022-10-26 17:17] VITALS: BMI 33.8
--- NOTE | 2022-10-26 17:17 | OBADM ---
This patient, Elo Rdz, admitted to the OB room OB Post 117 for observation. Patient/family oriented to hospital policies and general routines including ID bracelet, bed and alarms, visiting hours, pain management, procedures, bathroom and other care routines, personal items, smoking policy, room service/diet, and visiting hours. Patient/Family are encouraged to report perceived risks to care and to ask questions if they do not understand what they are told or what they should do.
[2022-10-26 17:49] VITALS: BP 105/64
--- NOTE | 2022-10-26 17:49 | PC.NURSE ---
1745- Dr. Perera notified of NST, okay to take off monitor. Send urine and call back with results.
[2022-10-26 18:06] LABS: Appearance Urine Clear (Clear); Bacteria Urine None Seen /hpf; Bilirubin Urine Negative (Negative); Blood Urine Negative (Negative); Color Urine Yellow (Yellow); Glucose Urine UA Negative (Negative); Ketones Urine Negative (Negative); Leukocyte Esterase Ur 1+ LEU/UL (Negative); Nitrate Urine Negative (Negative); Non Pathogenic Casts 0-2; Protein Urine Trace mg/dL (Negative); Specific Grav Ur 1.026 (1.001-1.035); Squamous Epithelial Cell Urine Few /hpf (Few)
[2022-10-26 18:17] LABS: Add Urine Microscopic? YES
--- NOTE | 2022-11-04 21:26 | PM.OBTRLD ---
OB - Triage/Final Diagnosis Visit Information Comments/Additional reasons for admission: I have assessed the risk for this patient, Elo Rdz, and determined that she would benefit from observation care. Evaluation Laboratory results: Laboratory Tests 10/26/22 17:53 Urine Color Yellow Urine Appearance Clear Urine pH 6.0 Ur Specific [place] 1.026 Urine Protein Trace Urine Glucose (UA) Negative Urine Ketones Negative Ur Blood (Man) Negative Urine Nitrate Negative Urine Bilirubin Negative Urine Urobilinogen 1.0 Leukocyte Esterase Rfl 1+ H Urine RBC 3-5 H Urine WBC 11-20 H Ur Squamous Epith Cells Few Urine Bacteria None seen Urine Casts 0-2 Final Diagnosis (1) Abdominal pain: Code(s): R10.9 - Unspecified abdominal pain Status: Acute
== END 2022-10-26 18:33 | disposition home or self-care (01) ==
PROVIDERS: Obstetrics & Gynecology; Admitting Provider Obstetrics & Gynecology; PCP Internal Medicine; Visit Provider Obstetrics & Gynecology
DX: O26.893 Other specified pregnancy related conditions, third trimester (principal); R10.9 Unspecified abdominal pain; Z3A.31 31 weeks gestation of pregnancy
CPT/HCPCS: 59025; 81001; 87086; G0378; G0379

== ENCOUNTER 2022-11-12 10:27 | Outpatient (RCR) | payer BC, OTHER, SELFPAY ==
--- NOTE | 2022-11-12 11:33 | PC.NURSE ---
Dr Martin notified of decreased movement, SOB with exertion and a headache that was noted after the periods of SOB. Encourage to take vitamin and make sure it has iron in it. Stay hydrated.
[2022-11-12 11:36] VITALS: BP 119/64; PULSE 112
== END 2023-01-17 10:49 | disposition home or self-care (01) ==
LOC: ANHOBOP 10:27
PROVIDERS: PCP Internal Medicine; Visit Provider Obstetrics & Gynecology
DX: O36.8130 Decreased fetal movements, third trimester, not applicable or unspecified (principal); Z3A.33 33 weeks gestation of pregnancy
CPT/HCPCS: 59025

== ENCOUNTER 2022-11-23 08:06 | Emergency (ER) | payer BC, OTHER, SELFPAY ==
[2022-11-23 08:14] VITALS: BP 127/76; PULSE 86; RESP 16; TEMP 36.3; O2SAT 100
--- NOTE | 2022-11-23 08:14 | ED.EAR ---
HPI - Ear Problem General Chief complaint: Ear Stated complaint: right ear pain Source: patient Mode of arrival: ambulatory Limitations: no limitations History of Present Illness HPI Narrative: 27-year-old female presented for complaints of right ear pain for about 1 week. Rates pain 9/10, described as sharp and piercing into the ear and radiating down into the throat, and sounds like people are 'talking into a microphone.' Pain is worse with talking. States she could not sleep last night due to the pain. Patient is 34 weeks gestation. Only taking Tylenol for pain. Denies tinnitus, dizziness, nausea vomiting, fevers or chills. MD Complaint: ear pain Related Data Allergies Allergy/AdvReac Type Severity Reaction Status Date / Time latex Allergy Mild Rash Verified 11/23/22 08:14 CEPHALEXIN MONOHYDRATE Allergy Unknown Rash Uncoded 11/23/22 08:14 Review of Systems Review of Systems: CONSTITUTIONAL: Denies malaise, chills, or fever. EYES: Denies visual changes, redness, or discharge. ENT: Denies rhinorrhea, congestion, sinus pain, and sore throat. Reports ear pain CARDIOVASCULAR: Denies chest pain, palpitations, or edema. RESPIRATORY: Denies cough or dyspnea. GASTROINTESTINAL: Denies abdominal pain, nausea, vomiting, diarrhea SKIN: Denies rash or itching. MUSCULOSKELETAL: Denies myalgia. NEUROLOGIC: Denies headache. All systems reviewed & are unremarkable except as noted in HPI and below PMFSH Past Medical History Medical History Allergies Anxiety and depression Eczema UTI (urinary tract infection) Surgical History Surgical History History of adenoidectomy History of dental surgery gums History of placement of ear tubes History of tonsillectomy Family History Family History Father Skin cancer (melanoma) Diabetes mellitus Hypertension Carcinoma of colon Mother Diabetes mellitus Asthma Cervical cancer Hypertension History of blood clots Social History Social History Smoking status: Former smoker Tobacco type: cigarettes Second hand tobacco smoke exposure: No Additional smoking assessment comments: Quit December 2014 Alcohol intake: current Alcohol use details: glass of wine occasionally Substance use: former Substance use type: marijuana Last use: Rare use Lack of Transportation: No Lack of Food: Never True Current Housing: I Have Housing Concerned About Future Housing: No Difficulty Paying Gas/Electric Bills: No Difficulty Paying for Meds: No Currently Unemployed: No Education: High School Diploma/GED Difficulty w/ Childcare or Family Care: No Living arrangements: with family Occupation/Education: occupation Gender identity (if verbalized by the patient): Female Sexual Orientation (if Verbalized by the Patient): Straight or Heterosexual Comments At time of signature, agree with nursing past medical, surgical, social and family history. There is no relevant family history pertinent to the presenting complaint Exam Narrative: GENERAL: Well-appearing, and in no acute distress. EYES: PERRLA, conjunctivae clear ENT: Nares clear. Mucous membranes moist. Left TM pearly burton with dull light reflex; Right TM erythematous, bulging and intact, canal not erythematous. No drainage no tragal or mastoid tenderness. Oropharynx not erythematous without lesions. Tonsils not enlarged and without exudate, no drooling, no hoarseness, no trismus, uvula midline. NECK: Supple. No lymphadenopathy CHEST: Clear to auscultation, breath sounds equal. No wheezing, rhonchi, rales, or stridor. No respiratory distress, speaks in full sentences. HEART: Regular rate and rhythm. No murmur heard. SKIN: Warm, dry, no rash. NEURO: Alert and oriented x3. PSYC
[2022-11-23 08:15] VITALS: BP 127/76; PULSE 86; RESP 16; TEMP 36.3; O2SAT 100
== END 2022-11-23 08:26 | disposition home or self-care (01) ==
PROVIDERS: Emergency Provider Nurse Practitioner Family; PCP Internal Medicine
DX: H66.91 Otitis media, unspecified, right ear (principal); Z87.891 Personal history of nicotine dependence
CPT/HCPCS: 99213; G0463

== ENCOUNTER 2022-12-20 00:01 | Inpatient (IN) | payer BC, OTHER, SELFPAY ==
[2022-12-20] VITALS (25 sets, daily range): BP systolic 72–150; BP diastolic 29–121; PULSE 70–132; RESP 16; TEMP 36.5–37.2; O2SAT 98–99; BMI 34.1
[2022-12-20] MEDS: OXYTOCIN 30 UNITS/NS 500 ML 30 UNITS/500 ML BAG 125 UNITS IV CONT ×2 (02:04→11:22)
[2022-12-20] MEDS: LACTATED RINGERS 1,000 ML 125 ML IV CONT ×3 (02:04→08:29)
[2022-12-20 02:16] LABS: Basophils Percent Auto 0.3 % (0.2-1.2); Eosinophils Absolute Auto 0.1 K/mm3 (0-0.3); Eosinophils Percent Auto 0.6 % (0-4.4); Hemoglobin 10.4 g/dL (12.0-15.0); Immature Granulocyte Percent A 0.8 % (0-0.5); Lymphocytes Absolute Auto 2.86 K/mm3 (0.9-3.2); Mean Corpuscular HGB Conc 31.5 g/dl (32-36); Mean Corpuscular Hemoglobin 25.3 pg (26-34); Mean Corpuscular Volume 80.3 fl (80-100); Mean Platelet Volume 10.5 fl (7.4-10.4); Monocytes Absolute Auto 0.9 K/mm3 (0.1-0.6); Monocytes Percent Auto 7.4 % (2.6-8.5); Neutrophils Absolute Auto 8.5 K/mm3 (1.3-6.7); Neutrophils Percent Auto 67.9 % (45.5-73.1); Nucleated Red Blood Cells Perc 0.2 % (0.0-0.2); Platelet Count Result 226 k/mm3 (150-375); Red Blood Count 4.11 M/mm3 (4.2-5.4); Red Cell Distribution Width 14.6 % (11.5-14.5); White Blood Count 12.5 K/mm3 (4.5-10.0)
--- NOTE | 2022-12-20 03:58 | WPDOBADMIT ---
Obstetrics - Admit Note Admission Note: record reviewed. No pertinent additions to the history and/or any subsequent changes in the physical findings that are not consistent with the expected course of the were found. elective IOL Additions to the history and/or subsequent changes in the physical findings follow. None.
--- NOTE | 2022-12-20 04:46 | PM.OBPNLAB ---
Pain Control Date/time seen: 12/20/22 04:46 SVE 3-4/70/-2 AROM clear odorless fluid, anticipate vaginal delivery
--- NOTE | 2022-12-20 05:08 | WPDANESEPP ---
Anes - Eval Pre Procedure Procedure: Labor epidural Date/Time: 12/20/22 05:08 Surgeon: Trever Preop Diagnosis: Abdominal pain with contractions Pre Op Diagnosis: Induction of Labor Patient Data Age: 27 Gender: F Height: 1.68 m Weight: 96 kg Last Vital Signs Pulse 87 12/20/22 04:52 BP 126/71 12/20/22 04:52 O2 Del Method Room Air 12/20/22 01:04 Allergies Allergy/AdvReac Type Severity Reaction Status Date / Time latex Allergy Mild Rash Verified 12/03/22 13:21 CEPHALEXIN MONOHYDRATE Allergy Unknown Rash Uncoded 12/03/22 13:21 Home Medications Medication Instructions Recorded Confirmed Type clindamycin HCl 300 mg capsule 300 mg PO BID #20 caps 12/03/22 12/03/22 Rx (Cleocin HCl) prenat.vits,christophe,buf-skwa-gblnl tablet 12/03/22 12/03/22 History Laboratory Tests 12/20/22 02:08 WBC 12.5 H K/mm3 (4.5-10.0) RBC 4.11 L M/mm3 (4.2-5.4) Hgb 10.4 L D g/dL (12.0-15.0) Hct 33.0 L % (37.0-47.0) MCV 80.3 fl (80-100) MCH 25.3 L pg (26-34) MCHC 31.5 L g/dl (32-36) RDW 14.6 H % (11.5-14.5) Plt Count 226 k/mm3 (150-375) MPV 10.5 H fl (7.4-10.4) Immature Gran % (Auto) 0.8 H % (0-0.5) Neut % (Auto) 67.9 % (45.5-73.1) Lymph % (Auto) 23.0 % (18.3-44.2) [place] % (Auto) 7.4 % (2.6-8.5) Eos % (Auto) 0.6 % (0-4.4) Baso % (Auto) 0.3 % (0.2-1.2) Lymph # (Auto) 2.86 K/mm3 (0.9-3.2) [place] # (Auto) 0.9 H K/mm3 (0.1-0.6) Eos # (Auto) 0.1 K/mm3 (0-0.3) Baso # (Auto) 0.0 K/mm3 (0.0-0.1) Abs Immat Gran (auto) 0.10 H K/mm3 (0.00-0.031) Absolute Neuts (auto) 8.5 H K/mm3 (1.3-6.7) Absolute Nucleated RBC 0.0 K/mm3 (0.0-0.012) Nucleated RBC % 0.2 % (0.0-0.2) RPR Pending Blood Type A Positive Antibody Screen Negative : gestational age HCG: positive Patient hx anesthesia problems: none Family hx anesthesia problems: none Results Review: All pre-operative results and documents have been reviewed as part of the pre-operative evaluation. [facility] Past Medical History Medical History Allergies Anxiety and depression Eczema Nasal fracture (~11/2022) Overweight (BMI 25.0-29.9) and not yet delivered UTI (urinary tract infection) Surgical History Surgical History History of adenoidectomy History of dental surgery gums History of placement of ear tubes History of tonsillectomy Family History Family History Father Skin cancer (melanoma) Diabetes mellitus Hypertension Carcinoma of colon Mother Diabetes mellitus Asthma Cervical cancer Hypertension History of blood clots Social History Social History Social History: Caffeine- tea/soda Smoking status: Never smoker Tobacco type: cigarettes Second hand tobacco smoke exposure: No Smoking end date: 12/02/14 Alcohol intake: current Alcohol use details: glass of wine occasionally Substance use: never Substance use type: does not use and marijuana Lack of Transportation: No Lack of Food: Never True Current Housing: I Have Housing Concerned About Future Housing: No Difficulty Paying Gas/Electric Bills: No Difficulty Paying for Meds: No Currently Unemployed: No Education: High School Diploma/GED Difficulty w/ Childcare or Family Care: No Living arrangements: with family Occupation/Education: occupation Gender identity (if verbalized by the patient): Female Sexual Orientation (if Verbalized by the Patient): Straight or Heterosexual Spiritual care concerns: No Exam Day of Procedure 12/20/22 05:08 Patient weight: overweight Airway: Mallampati scale class II
[2022-12-20] MEDS: fentaNYL CITRATE INJ (*CRX) 100 MCG/2 ML VIAL 50 MCG IV PUSH ×2 (08:17→08:23)
[2022-12-20 09:17] LABS: Rapid Plasma Reagin Non-Reactive (NonReactive)
[2022-12-20] MEDS: fentaNYL CITRATE INJ (*CRX) 100 MCG/2 ML VIAL IV PUSH ×2 (09:41→10:55)
[2022-12-20] MEDS: ONDANSETRON INJ 4 MG/2 ML VIAL IV PUSH (10:15)
--- NOTE | 2022-12-20 10:57 | PM.OBPRVD ---
OB - Delivery Note Procedure Delivery date: 12/20/22 Procedure: Induction method: AROM and Per Pitocin Protocol Delivery monitor: External FHT and External Uterine Route of delivery: Episiotomy description: None Laceration Description: None Specimen: No Quantitative Blood Loss (ml): 40 Anesthesia type: None Disposition: Floor Baby Date of : 12/20/22 Time of : 10:46 Weeks of gestation at delivery: 39 gender: Male presentation: vertex position: Left Occiput Anterior Placenta delivery description: Spontaneous Cord Vessel Description: 3 Vessels and Clamped/Cut Narrative: head delivered slowly and did not rotate initially. was able to manually rotate to DENNISE, mitali, posterior shoulder delivered and then baby then easily delivered. mother and baby in stable condition, moving all extremities
[2022-12-20] MEDS: WITCH HAZEL 40 PADS 1 PAD TOPICAL (13:17)
[2022-12-20] MEDS: BENZOCAINE 20% AER SPR (*SP) 56 GM CAN 1 SPRAY TOPICAL (13:18)
--- NOTE | 2022-12-20 13:28 | PC.NURSE ---
Patient transferred to post room #276 via ( W/C ). Support person present. Oriented to unit, room, information board, rooming in, admission packet and security measures. Patient verbalizes understanding.
[2022-12-20] MEDS: IBUPROFEN 600 MG TABLET PO (14:17)
[2022-12-20] MEDS: DOCUSATE SODIUM 100 MG CAPSULE PO (16:17)
[2022-12-21] MEDS: ACETAMINOPHEN 325 MG TABLET 650 MG PO (00:48)
[2022-12-21] MEDS: DOCUSATE SODIUM 100 MG CAPSULE PO ×2 (00:54→08:23)
[2022-12-21] MEDS: IBUPROFEN 600 MG TABLET PO (04:16)
[2022-12-21 05:34] LABS: Hematocrit 32.3 % (37.0-47.0); Hemoglobin 9.9 g/dL (12.0-15.0)
--- NOTE | 2022-12-21 06:22 | PM.OBPNVD ---
OB - PN: Subj Subjective Date/time seen: 12/21/22 06:22 Interval history: pp day 1 doing well bottle feeding requests d/c home OB - PN: Obj Data Labs 12/21/22 05:11 Labs: Laboratory Results - last 24 hr 12/20/22 12/21/22 02:08 05:11 Hgb 9.9 L Hct 32.3 L RPR Non-reactive OB - PN A/P Plan day: 1 Plan: routine care and discharge home Time Spent With Patient Time: Total time spent is greater than 50% in coordination of care (as documented) at patient's floor/unit and/or counseling patient: Review of Systems Review of Systems: All systems reviewed & are unremarkable except as noted in HPI and below Exam Const: General: cooperative and healthy appearing Chest: Chest palpation & inspection: normal inspection of the chest Resp: Effort & Inspection: normal respiratory effort Cardio: Rate: regular rate Rhythm: regular rhythm GI: Other: soft Skin: General skin exam: normal color Neuro: General: patient oriented x3 Extrem: Right lower extremity: edema Left lower extremity: edema
--- NOTE | 2022-12-21 06:25 | PM.OBDSVD ---
DS: Admitting Diagnosis Discharge Date 12/21/22 Admitting Diagnosis IOL DS: Discharge Diagnosis Discharge Diagnosis (1) Vaginal delivery: Code(s): O80 - Encounter for full-term uncomplicated delivery Status: Acute OB - DS: Summary OB Procedures : None OB Procedures Intrapartum: Spontaneous Vag Delivery OB Procedures: : None Time Spent with Patient Time attestation: Total time spent providing and/or coordinating discharge services: DS: Data Data Completed and Pending Labs on day of discharge: Labs from last 24 hours 12/21/22 12/20/22 05:11 02:08 Hgb 9.9 L Hct 32.3 L RPR Non-reactive Discharge Plan Discharge Attending physician on discharge: Farhan Anderson Discharging Clinician: Yessenia Jones Patient Disposition: Home, Self-Care Activity: pelvic rest Diet: regular Patient Instructions: Antibiotic Form Stand Alone Forms: General Discharge Information Follow-up/Referrals: Yessenia Jones, CNM [Certified Nurse Marking Machine Tender] - 4 Weeks Discharge Medications: New ibuprofen 600 mg Tablet 600 mg PO Q6H PRN (Reason: Cramping) Qty: 30 0RF Continued #2 Tablet 1 tablet PO DAILY Discontinued famotidine [Pepcid] 20 mg Tablet 20 mg PO DAILY Date of admission: 12/20/22 00:01 Primary Care Provider: Aleksandar Dunn Admitting Provider: Tisha Perera Attending physician on admission: Tisha Perera Condition: Stable
[2022-12-21 08:05] VITALS: BP 105/58; PULSE 60; RESP 16; TEMP 37; O2SAT 97
[2022-12-21] MEDS: POLYSACCHARIDE IRON COMPLEX 150 MG CAPSULE PO (08:23)
[2022-12-22 11:21] VITALS: BP 135/81; PULSE 97; RESP 18; TEMP 37.1; O2SAT 100
== END 2022-12-21 17:12 | disposition home or self-care (01) | DRG 807 ==
LOC: ANHLDR 00:05 → ANHOB2 13:30
PROVIDERS: Admitting Provider Obstetrics & Gynecology; PCP Internal Medicine; Referring Provider Advanced Practice Midwife; Visit Provider Obstetrics & Gynecology
DX: O62.3 Precipitate labor (principal); Z37.0 Single live birth; Z3A.39 39 weeks gestation of pregnancy
CPT/HCPCS: 36415; 85014; 85018; 85025; 86592; 86850; 86900; 86901; A9270; J2405; J2590; J2795; J3010; J7120

== ENCOUNTER 2023-12-16 15:26 | Outpatient (CLI) | payer OTHER, SELFPAY ==
[2023-12-16 19:09] LABS: Basophils Absolute Auto 0.1 K/mm3 (0.0-0.1); Basophils Percent Auto 0.6 % (0.2-1.2); Eosinophils Absolute Auto 0.2 K/mm3 (0-0.3); Eosinophils Percent Auto 1.6 % (0-4.4); Hemoglobin 13.9 g/dL (12.0-15.0); Immature Granulocyte Absolute 0.03 K/mm3 (0.00-0.031); Immature Granulocyte Percent A 0.3 % (0-0.5); Lymphocytes Absolute Auto 3.12 K/mm3 (0.9-3.2); Mean Corpuscular HGB Conc 32.3 g/dl (32-36); Mean Corpuscular Hemoglobin 28.3 pg (26-34); Mean Corpuscular Volume 87.4 fl (80-100); Mean Platelet Volume 11.1 fl (7.4-10.4); Monocytes Absolute Auto 0.9 K/mm3 (0.1-0.6); Monocytes Percent Auto 8.6 % (2.6-8.5); Neutrophils Absolute Auto 6.1 K/mm3 (1.3-6.7); Neutrophils Percent Auto 58.9 % (45.5-73.1); Platelet Count Result 263 k/mm3 (150-375); Red Blood Count 4.92 M/mm3 (4.2-5.4); Red Cell Distribution Width 15.2 % (11.5-14.5); White Blood Count 10.4 K/mm3 (4.5-10.0)
[2023-12-16 19:13] LABS: Alanine Aminotransferase 18 U/L (6-35); Albumin Level 4.3 g/dL (3.5-5.1); Alkaline Phosphatase 88 U/L (38-126); Anion Gap 9 mmol/L (4-12); Aspartate Amino Transferase 31 U/L (14-36); Bilirubin,Total 0.3 mg/dL (0.2-1.3); Blood Urea Nitrogen 11 mg/dL (7-17); Calcium 9.3 mg/dL (8.4-10.2); Carbon Dioxide 28 mmol/L (22-30); Chloride 102 mmol/L (98-107); Estimated Glomerular Filt Rate > 60; Glucose 86 mg/dL (65-110); Potassium 4.2 mmol/L (3.4-5.0); Sodium 139 mmol/L (137-145)
== END 2023-12-16 15:27 | disposition home or self-care (01) ==
PROVIDERS: PCP Internal Medicine; Visit Provider Clinical Nurse Specialist
DX: F41.9 Anxiety disorder, unspecified (principal); Z13.228 Encounter for screening for other metabolic disorders
CPT/HCPCS: 36415; 80053; 84443; 85025

== ENCOUNTER 2024-07-08 09:06 | Emergency (ER) | payer OTHER, SELFPAY ==
[2024-07-08 09:23] VITALS: BP 117/70; PULSE 80; RESP 16; TEMP 36.4; O2SAT 99
--- OUTSIDE RECORDS SUMMARY | 2024-07-08 09:29 | XMS_ITS | Encounter Summary ---
Author Organization [facility] Address [address] [place] [address] Care Team Providers Care Business Associate Name Role Phone Unavailable Primary Care Provider Unavailabl e Encounter Details Date Type Department Care Team (Latest Contact Info) Description 02/14/2006 Outpatient Historical [facility] FRANCISCA Hale, Lamine Mejia MD [address] [place] [address] Epistaxis (Primary Dx) Social History Tobacco Use Types Packs/Day Years Used Date Smoking Tobacco: Never Assessed Comments Unknown Sex and Gender Information Value Date Recorded Sex Assigned at Not on file Legal Sex Female 5:08 AM [employer] Gender Identity Not on file Sexual Orientation Not on file documented as of this encounter Plan of Treatment Not on file documented as of this encounter Procedures Procedure Name Priority Date/Time Associated Diagnosis Comments CBC WITH DIFFERENTIAL Routine 02/14/2006 10:35 AM [employer] MECH[employer]IC CBC WITH DIFFERENTIAL Routine 02/14/2006 10:35 AM [employer] MECHANIC PTT Routine 02/14/2006 10:35 AM [employer] MECHANIC PROTIME-INR Routine 02/14/2006 10:35 AM TEXT[employer] MECHANIC documented in this encounter Results * (ABNORMAL) CBC WITH DIFFERENTIAL (02/14/2006 10:35 AM TEXTILE [employer] AND [employer] MECHANIC) NEUTROPHILS 46 36 - 74 % INTERFAC E SYSTEM LYMPHOCYTES 47 18 - 53 % INTERFAC E SYSTEM MONOCYTES 6 2 - 13 % INTERFACE SYSTEM EOSINOPHILS 1(L) 2 - 12 % INTERFAC E SYSTEM BASOPHILS 1 0 - 3 % INTERFACE SYSTEM NEUTROPHIL ABSOLUTE 3.41 K/uL INTERFACE SYSTEM LYMPHOCYTE ABSOLUTE 3.51 K/uL INTERFACE SYSTEM MONOCYTE ABSOLUTE 0.41 K/uL INTERFACE SYSTEM EOSINOPHIL ABSOLUTE 0.07 K/uL INTERFACE SYSTEM BASOPHILS ABSOLUTE 0.04 K/uL INTERFACE SYSTEM 02/14/2006 10:3 5 AM [employer] MECH[employer]IC Lamine Hale MD HEMATOLOGY ORDERABLES Final Re sult Performing Organization Address [facility] de Phone Number INTERFACE SYSTEM Refer to clinic/hospital department * CBC WITH DIFFERENTIAL (02/14/2006 10:35 AM TEXTILE [employer] MECHANIC) WBC 7.4 4.5 - 13.5 K/uL INTERFACE SYSTEM RBC 4.84 4.00 - 5.20 M/uL INTERFACE SYSTEM HEMOGLOBIN 13.7 11.5 - 15.5 g/dL INTERFACE SYSTEM HEMATOCRIT 40.6 35.0 - 45.0 % INTERFACE SYSTEM MCV 83.9 77.0 - 95.0 fL INTERFACE SYSTEM MCH 28.3 24.0 - 30.0 pg INTERFACE SYSTEM MCHC 33.7 30.0 - 36.0 % INTERFACE SYSTEM RDW 13.6 11.5 - 14.5 % INTERFACE SYSTEM RDW-STDEV 41.6 37.1 - 48.7 fL INTERFACE SYSTEM PLATELETS 339 140 - 350 K/uL INTERFACE SYSTEM MPV 10.2 9.3 - 12.4 fL INTERFACE SYSTEM 02/14/2006 10:3 5 AM [employer] MECH[employer]IC Lamine Hale MD HEMATOLOGY ORDERABLES Final Re sult Performing Organization Address [facility] Phone Number INTERFACE SYSTEM Refer to clinic/hospital department * PTT (02/14/2006 10:35 AM TEXTILE [employer] MECHANIC) PTT 32.1 24.4 - 36.4 Seconds INTERFACE SYSTEM Comment: PTT Therapeutic Range: Heparin Level PTT (seconds) <0.10 units/mL <53 0.10 - 0.30 units/mL 53 - 67 0.30 - 0.70 units/mL* 67 - 95* 0.70 - 1.00 units/mL 95 - 116 *corresponds to therapeutic range for unfractionated heparin 02/14/2006 10:3 5 AM [employer] MECH[employer]IC Lamine Hale MD HEMATOLOGY ORDERABLES Final Re laurencet Performing Organization Address [facility] Phone Number INTERFACE SYSTEM Refer to clinic/hospital department * PROTIME-INR (02/14/2006 10:35 AM TEXT[employer] MECHANIC) PROTIME 14.9 12.7 - 15.1 Seconds INTERFACE SYSTEM INR 1.1 0.9 - 1.1 INTERFACE SYSTEM Comment: INR Therapeutic Range: Adult: 2.0 - 3.0 for pulmonary embolism or prophylaxis against venous thrombosis or systemic embolization. 2.0 - 3.0 for patients with tissue heart valves. 2.5 - 3.5 for patients with mechanical heart valves or post [place]. Pediatric (12 years and under): 1.5 - 3.0 Although the target range in children is not well established , INR values of 1.5 - 3.0 are recommended for most patients. Higher values have been used in children with prosthetic cardiac valves and hereditary clotting disorders. (<3 days) therapeutic ranges have not been established. 02/14/2006 10:3 5 AM [employer] MECH[employer]IC Lamine Hale MD HEMATOLOGY ORDERABLES Final Briseida villatoro Performing Organization Address [facility] Phone Number INTERFACE SYSTEM Refer to clinic/hospital department documented in this encounter Visit Diagnoses Diagnosis Epistaxis- Primary documented in this encounter
--- OUTSIDE RECORDS SUMMARY | 2024-07-08 09:30 | XMS_ITS | Data Portability ---
Author Organization [facility] [employer] , [facility] Address [address] [place] [address] Care Team Providers Care Business Unit Director Name Role Phone [facility] Polysomnography Technician Assessment No assessment recorded. Plan of Treatment Reminders Order Date Submit Date Provider Last Modified By Organization Details Last Modified Time Details Appointments None recorded. Lab test, urine 2020 021 [facility], [address] [place], [address], 22:03:36 Referral None recorded. Procedures None recorded. Surgeries None recorded. Imaging None recorded. Medication Orders Junel Fe 24 1 mg-20 mcg (24)/75 mg (4) tablet 2020 [id number], [address] , [place], [place], [phone], 18:03:46 Patient TargetsNo targets recorded. Patient InstructionsNo instructions recorded. Reason for Referral None Reported. Results Created Date Observation Date Name Description Value Unit Range Abnormal Flag Note LastModifiedBy Organization Detail LastModifiedTime Result Notes None recorded. Problems Name Problem SNOMED Code Status Onset Date Resolution Date Notes Provider Name and Address Organization Details Recorded Time Gestatio n period, 38 weeks [id number] Completed 201603/08/2017 38 weeks gestatio n of pregnanc y; Progress : Stable Added By: Reinheim er, Esperanza Add to Current Problems : NO ProblemS tatus: Resolve Antenata l screenin g; unspecif ied; Location : None Progress : Stable Added By: Reinheim er, Esperanza Add to Current Problems : YES ProblemS tatus: Resolve Not Available [facility] 2 21:43:38 Normal pregnanc y in multigra kimmie [id number] Completed 201603/08/2017 Encounte r for supervis ion of other normal pregnanc y, second trimeste r; Progress : Stable Added By: Esperanza Stratton Add to Current Problems : NO ProblemS tatus: Resolve Not Available [facility] 2 21:43:37 Educatio n Active 2020 Encounte r for other general counseli ng and advice on contrace ption; Progress : Stable Added By: Elizabeth Montes Add to Current Problems : YES ProblemS tatus: Current Not Available [facility] 2 21:43:37 Vaginola bial hernia Active 2020 Other specifie d noninfla mmatory disorder s of vagina; Progress : Stable Added By: Teagan Grajeda Add to Current Problems : YES ProblemS tatus: Current Not Available [facility] 2 21:43:37 Acute vaginiti s [id number] Active 2020 Acute vaginiti s; Progress : Stable Added By: Teagan Grajeda Add to Current Problems : YES ProblemS tatus: Current Not Available [facility] 2 21:43:38 anatomy study Completed 201603/08/2017 Encounte r for anatomic survey; Location : None Progress : Stable Added By: Lois Katz Add to Current Problems : YES ProblemS tatus: Resolve Not Available [facility] 2 21:43:37 Antenata l screenin g Completed 201603/08/2017 Encounte r for antenata l screenin g of mother; Progress : Stable Added By: Lois Katz Add to Current Problems : NO ProblemS tatus: Resolve Not Available [facility] 2 21:43:37 Prescrip tion of contrace ption Active 2020 Encounte r for initial prescrip tion of vaginal ring hormonal contrace ptive; Progress : Stable Added By: Gracie Mohamud Add to Current Problems : YES ProblemS tatus: Current Not Available [facility] 2 21:43:37 Surveill ance of vaginal hormone releasin g ring method of contrace ption Active 2020 Encounte r for surveill ance of vaginal ring hormonal contrace ptive device; Progress : Stable Added By: Elizabeth Montes Add to Current Problems : YES ProblemS tatus: Current Not Available [facility] 2 21:43:38 Notes:Medical visit for norm al (V22.1) ; OnsetDate: 06/13/2016; ResolvedDate: 03/08/2017; Progress: Stable Added By: Esperanza Salazar Add to Current Problems: NO ProblemStatus: Resolve Problem Notes None recorded. Medical Equipment None Reported. Allergies Allergen ID Allergen Name Allergen Category Reaction Reaction Severity Criticality Documentation Date Start Date Code Code System Note Provider Name and Address Organization Details Recorded Time 159887 latex environme nt,medica tion Not available Not available Not available 12/23/20202016 72075 91 RxNorm Sever ity: Moder ate; Not Available [facility] 01:19:31 971959 Keflex medicatio n Not available Not available Not available 12/23/20202016 40955 7 RxNorm Sever ity: Moder ate; Not Available [facility] 01:19:31 Medications Name Sig Start Date Stop Date Status Note LastModified by Organization Details LastModified Time prednison e 10 mg tablet active Not Available Not Available Not Available trazodone 50 mg tablet TAKE 1/2 TABLET BY MOUTH AT BEDTIME 02/03 completed Not Available Not Available Not Available minocycli ne 100 mg capsule TAKE 1 CAPSULE BY MOUTH TWICE DAILY FOR 14 DAYS active Not Available Not Available No t Available promethaz ine 12.5 mg tablet TAKE 1 TABLET BY MOUTH FOUR TIMES DAILY active Not Available Not Available No t Available ondansetr on HCl 4 mg tablet active Not Available Not Available No t Available prednison e 20 mg tablet TAKE 3 TABLETS BY MOUTH DAILY FOR 7 DAYS 02/03 completed Not Available Not Available Not Available pimecroli mus 1 % topical cream 02/03 completed Not Available Not Available Not Available clobetaso l 0.05 % topical cream RUB IN WELL TWICE DAILY TO INVOLVED AREAS OF BODY UNTIL CLEAR active Not Available Not Available No t Available metronida zole 500 mg tablet take 1 tablet (500 mg) by oral route 2 times per day 02/03 completed metroNID AZOLE 500 mg oral tablet RxNorm: 964620 Allow Substitu tion: True Refill Denied: No Edited by: Saadia Crowder ) on 10/13/19 Stopped by: Saadia Crowder ) on Not Available Not Available Not Available triamcino lone acetonide 0.1 % topical cream APPLY TOPICALL Y TO THE AFFECTED AREA TWICE DAILY UNTIL GONE. RUB IN WELL active Not Available Not Available No t Available Zantac 150 mg tablet 1 p.o. bid 03/28 completed Zantac 150mg Tablet RxNorm: 813091 Allow Substitu tion: True Refill Denied: No Not Available Not Available Not Available famotidin e 20 mg tablet TAKE 1 TABLET BY MOUTH TWICE DAILY 02/03 completed Not Available Not Available Not Available doxycycli ne monohydra te 100 mg capsule TAKE 1 CAPSULE BY MOUTH TWICE DAILY 02/03 completed Not Available Not Available Not Available Eileen-D 12 Hour 60 mg-120 mg tablet,ex tended release TAKE 1 TABLET BY MOUTH EVERY 12 HOURS NEEDED FOR SINUS SYMPTOMS 02/03 completed Not Available Not Available Not Available monteluka st 10 mg tablet TAKE 1 TABLET BY MOUTH DAILY 02/03 completed Not Available Not Available Not Available hydroxyzi ne HCl 25 mg tablet TAKE 1 TO 2 TABLETS BY MOUTH AT BEDTIME NEEDED active Not Available Not Available No t Available norethind win acetate 1 mg-ethiny l estradiol 20 mcg tablet take 1 tablet by oral route once daily 11/14 completed norethin drone ac-eth estradio L 1-20 mg-mcg oral tablet RxNorm: 0514372 Allow Substitu tion: False Refill Denied: No Refill DateOccu rred: 10/13/19 Edited by: Elizabeth Keita ) on 11/15/19 Stopped by: Elizabeth Keita ) on 11/15/19 21 Not Available Not Available Not Available methylpre dnisolone 4 mg tablets in a dose pack FOLLOW PACKAGE DIRECTIO NS active Not Available Not Available No t Available albuterol sulfate HFA 90 mcg/actua tion aerosol inhaler INHALE 2 PUFFS BY MOUTH FOUR TIMES DAILY NEEDED FOR SHORTNES S OF BREATH OR WHEEZING active Not Available Not Available No t Available fluticaso ne propionat e 50 mcg/actua tion nasal spray,alysha pension SHAKE LIQUID AND USE 1 SPRAY IN EACH NOSTRIL DAILY 02/03 completed Not Available Not Available Not Available Unisom (doxylami ne) 25 mg tablet 09/10 completed Unisom SleepTab s Allow Substitu tion: True Refill Denied: No Refill DateOccu rred: 07/14/19 17 Not Available Not Available Not Available loratadin e 10 mg tablet TAKE 1 TABLET BY MOUTH DAILY NEEDED FOR ALLERGY SYMPTOMS 02/03 completed Not Available Not Available Not Available etonogest rel 0.12 mg-ethiny l estradiol 0.015 mg/24 hr vaginal ring insert 1 vaginal ring by vaginal route once a month leave in place for 3 weeks, remove for 1 week 02/03 completed Not Available Not Available Not Available escitalop ki 10 mg tablet TAKE 1 TABLET BY MOUTH DAILY 02/03 completed Not Available Not Available Not Available bupropion HCl XL 150 mg 24 hr tablet, extended release TAKE 1 TABLET BY MOUTH EVERY MORNING active Not Available Not Available No t Available nitrofura ntoin monohydra te/macroc rystals 100 mg capsule 02/03 completed Not Available Not Available Not Available Multivita mins 07/13 completed Multivit amins Allow Substitu tion: True Refill Denied: No Refill DateOccu rred: 06/14/19 17 Not Available Not Available Not Available ProChambe r USE DIRECTED active Not Available Not Available No t Available Diclegis 10 mg-10 mg tablet,de layed release 2 tabs PO q hs, if symptoms persist after 2 days, incr. to 1 tab po q am and 2 tabs po q hs 07/13 completed Diclegis 10mg/10m g Tablets, Delayed Release RxNorm: [id number] Allow Substitu tion: True Refill Denied: No Not Available Not Available Not Available Xulane 150 mcg-35 mcg/24 hr transderm al patch APPLY 1 PATCH TOPICALL Y TO THE SKIN 1 TIME WEEKLY 02/03 completed Not Available Not Available Not Available Aurovela 24 Fe 1 mg-20 mcg (24)/75 mg (4) tablet TAKE 1 TABLET BY MOUTH EVERY DAY active Not Available Not Available No t Available Aurovela Fe 1-20 (28) 1 mg-20 mcg (21)/75 mg (7) tablet TAKE 1 TABLET BY MOUTH EVERY DAY 02/03 completed Not Available Not Available Not Available ID NOW COVID-19 Test Kit TEST DIRECTED TODAY active Not Available Not Available No t Available BinaxNOW COVID-19 Ag Self Test kit TEST DIRECTED TODAY active Not Available Not Available No t Available Vitals Date Recorded Body height Body mass index (BMI) Body weight Body temperature Systolic blood pressure Diastolic blood pressure Provider Name and Address Organization Details Last Updated DateTime 162.56 cm 28.8 kg/m2 57964.8 g 98.2 [degF] 110 mm[Hg] 62 mm[Hg] Elizabeth Montes [employer] 17:30:59 Social History Question Answer Notes LastModified by Organizat ion Details LastModified Time Tobacco Smoking Status Never Smoker Elizabeth guillen, [employer] 02/03/2021 17:34:43 What Is Your Level Of Alcohol Consumption? None Information not available 02/03/2021 If You Are , What Was Your Level Of Alcohol Consumption Prior To ? None Information not available 02/03/2021 Are You Blind Or Do You Have Difficulty Seeing? No Information not available 02/03/2021 Are You Deaf Or Do You Have Serious Difficulty Hearing? No Information not available 02/03/2021 What Type Of Diet Are You Following? REGULAR Information not available 02/03/2021 How Many Children Do You Have? 2 Information not available 02/03/2021 What Is Your Relationship Status? Single Information not available 02/03/2021 Are You Sexually Active? Yes Information not available 02/03/2021 Do You Use Any Illicit Or Recreational Drugs? No Information not available 02/03/2021 Do You Or Have You Ever Used Any Other Forms Of Tobacco Or Nicotine? No Information not available 02/03/2021 Sex: Unknown Functional Status Question Answer Note LastModified by Organization D etails LastModified Time What is your exercise level? None Information not available 02/03/2021 Mental Status None recorded. Family History Nothing Reported. Medical History No medical history recorded. Gynecological History Statement/Question Response Flow Date of LMP 12/02/2020 Most Recent Bone Density HPV Vaccine N Date of Last Pap Smear Most Recent Mammogram Current Control Method None Obstetrics History GPAL:G 2 P 2 0 0 2 Type Value Full Term 2 Living 2 Total 2 Past Encounters Encounter ID Performer Location Encounter Start Date Encounter Closed Date Diagnosis/Indication Diagnosis SNOMED-CT Code Diagnosis ICD10 Code Diagnosis Note [id number] Jackie Winkler CNM [facility] [address] [place] [address] 02/03/2021 16:53:34 02/03/2021 18:04:22 Prescription of contraception [id number] Z30.019 COUNSELING was provided today regarding the following: - CHC use was discussed with the patient in detail including starting CHC risks, benefits, side effects, and ACHES. - Backup contracept ion x 2 weeks after quick start today - Back-up contracept ion was encouraged if the patient misses pills or takes antibiotic s. - Condoms should be used for STI prevention . - No absolute or relative contraindi cations to YOAN use were identified Health Concerns Section Related Observation LastModified by Organization Detai ls LastModified Time None Recorded Concern Status LastModified by Organization Details LastModified Time None Recorded Advance Directives Directive None Recorded Payers Insurance Date Sequence Insurance Name Policy Number Policy Mueller Covered Member ID Mueller Member ID Guarantor Name 05/28/2022 1 [place] [id number] Lonny Rdz [id number] Elo Rdz 05/25/2022 2 [facility] - DOS ON OR AFTER 20 (MEDICAID REPLACEMENT - HMO) Elo Rdz [id number] Elo Rdz Notes Date Note Type Note Provider Name and Address Organization Details Recorded Time 02/03/2021 text/html initial counseling on control options Jackie Winkler, JASPREET [address] [facility], [place], [address], [facility] 02/04/2021 10:04:27 OBGyn Episode Ob Episode Information Episode Created Date Number of Fetuses Patient Bloodtype Patient rh Status Prepregnancy Weight lbs Domestic Partner Domestic Partner Phone Father Name Chief Operator Synthesis Status 05/19/19 22 1 CLOSED Fetus Data First Name Last Name Admitted to NICU Weight (g) Sex Living Outcome Pediatric Complications Fetus ID Race Codes Race Delivery Type 3628.73 [id number] Watson Calculation Initial Watosn Date Initial Exam Date Initial Exam Provider Initial Ultrasound Date Last Menstrual Period Date Ultra Sound Weeks Gestation 0 Eighteen To Twenty Week Watson Update Ultra Sound Date Fundal Height At Umbil Quickening Date Ultra Sound Latest Weeks Gestation Final Watson Confirmed By Final Watson Confirmed Date Final Watson Date Ultra Sound Latest Days Gestation 0 0 Menstrual History Last Menstrual Date Menses Monthly On Bcp Conception Prior Menses Frequency Hcg Plus Date Menarche Onset Age Delivery Information Delivery Date Delivery Type Labor Anesthesia Weeks Gestation Incision Type Labor Labor Length Hrs Delivered By Post Complications Tubal Sterilization Discharge Date Comments 7 273 false Discharge Information Feeding Method Contraceptive Method Maternal HG B and HCT Levels
--- OUTSIDE RECORDS SUMMARY | 2024-07-08 09:30 | XMS_ITS | Data Portability ---
Author Organization [facility] [place] Address [address] [place] [address] [place] [address] Care Team Providers Care Public Policy Manager Name Role Phone NEO MCCABE Primary Care Provider Assessment Encounter Date Assessment Date Assessment LastModified by Organization Details LastModified Time 12/03/2022 12/03/2022 Patient is _36_weeks . Discussed plan. Not available 12/03/2022 10:44:39 12/12/2022 12/12/2022 Patient is _37__weeks . Discussed plan. Not available 12/12/2022 10:57:15 12/19/2022 12/19/2022 Patient is __38_weeks . Discussed plan. Not available 12/19/2022 14:53:09 Plan of Treatment Reminders Order Date Submit Date Provider Last Modified By Organization Details Last Modified Time Details Appointments None recorded. Lab urinalysis , dipstick 2022 023 [email or web address] 1 [facility], [address], [place], [address], 10:20:37 Referral None recorded. Procedures None recorded. Surgeries None recorded. Imaging US, obstetric, follow-up 2022 023 [email or web address] [facility], [address], [place], [address], 14:11:59 Medication Orders None recorded. Patient TargetsNo targets recorded. Patient InstructionsNo instructions recorded. Reason for Referral None Reported. Results Created Date Observation Date Name Description Value Unit Range Abnormal Flag Note LastModifiedBy Organization Detail LastModifiedTime 12/04/1912/03/2022 urina lysis , dipst ick Leukocytes +2 Not Available [facility] [address], [place], [address], 12/03/2022 10:19:39 12/04/1912/03/2022 urina lysis , dipst ick Nitrite normal Not Available [facility] [address], [place], [address], 12/03/2022 10:19:39 12/04/1912/03/2022 urina lysis , dipst ick Urobilinogen normal Not Available [facility] haley [address], [place], [address], 12/03/2022 10:19:39 12/04/1912/03/2022 urina lysis , dipst ick Protein trace Not Available [facility] [address], [place], [address], 12/03/2022 10:19:39 12/04/1912/03/2022 urina lysis , dipst ick pH 6 Not Available [facility] [address], [place], [address], 12/03/2022 10:19:39 12/04/1912/03/2022 urina lysis , dipst ick Specific Quimby 1.020 [facility] Available [facility] [address], [place], [address], 12/03/2022 10:19:39 12/04/1912/03/2022 urina lysis , dipst ick Ketone normal Not Available [facility] [address], [place], [address], 12/03/2022 10:19:39 12/04/19 23 12/03/2022 urina lysis , dipst ick Bilirubin normal Not Available [facility] [place] [facility] [address], [place], [address], 12/03/2022 10:19:39 12/04/19 23 12/03/2022 urina lysis , dipst ick Glucose normal Not Available [facility] [address], [place], [address], 12/03/2022 10:19:39 12/04/19 23 12/03/2022 urina lysis , dipst ick Appearance normal Not Available [facility] [place] [facility] [address], [place], [address], 12/03/2022 10:19:39 12/04/19 23 12/03/2022 urina lysis , dipst ick Color normal Not Available [facility] [address], [place], [address], 12/03/2022 10:19:39 11/13/1911/12/2022 non-s tress test No observ ation record ed. [email or web address] [place], [place] [id number] [address], [place], [address], 11/12/2022 13:34:31 11/20/19 23 11/19/2022 US, obste tric, follo w-up No observ ation record ed. [facility] [address], [place], [address], 11/19/2022 12:48:57 11/20/1911/19/2022 US, obste tric, follo w-up No observ ation record ed. HIRO Stella [address], [place], [address], 12/09/2022 05:25:51 Result Notes None recorded. Problems Name Problem SNOMED Code Status Onset Date Resolution Date Notes Provider Name and Address Organization Details Recorded Time Pregnanc y 93284394 Completed 202212/24/2022 Yamzin Cardenas [facility], [facility] 3 13:15:39 Gastroes ophageal reflux disease 552689048 Completed pepcid BID--> protonix Yazmin Batistale [facility], [facility] 3 13:15:32 Gastroes ophageal reflux disease 129525445 Active pepcid BID--> protonix [facility] [email or web address] Bat[place]ale [facility], [facility] 3 13:15:32 Uterine size for dates discrepa ncy 811150164 Completed S>D, growth US Yazmin Cardenas [facility], [facility] 3 13:15:32 Problem Notes None recorded. Procedures Surgical History Date Name Laterality Status Provider Name and Address Organization Details Recorded Time 3 Date of Last Pap Smear completed [facility] 05/21/2022 10:02:47 5 extraction of wisdom tooth completed [facility] 05/29/2022 18:45:00 3 tonsilectomy/a denoids completed [facility] 05/29/2022 18:44:51 Imaging Results Imaging Date Name Status LastModified by Organiz ation Details LastModified Time 11/12/2022 non-stress test completed [address], [place], [address], 11/12/2022 13:34:31 11/19/2022 US, obstetric, follow-up completed sandie [place] [address], [place], [address], 11/19/2022 12:48:57 11/19/2022 US, obstetric, follow-up active HIRO Stella [address], [place], [address], 12/09/2022 05:25:51 Procedure Notes None recorded. Medical Equipment None Reported. Allergies Allergen ID Allergen Name Allergen Category Reaction Reaction Severity Criticality Documentation Date Start Date Code Code System Note Provider Name and Address Organization Details Recorded Time 30087 latex environme nt,medica tion itching rash Not available Not available Not available 02/19/2020 57681 91 RxNorm Cee Reza [facility] 3 12:09:10 34126 Keflex medicatio n Not available Not available Not available 05/21/202225802 7 RxNorm Cee Reza [facility] 3 12:08:51 cephalexi n medicatio n Not available Not available Not available 05/21/2022 2231 RxNorm Cee Reza [facility] 3 12:09:03 Medications Name Sig Start Date Stop Date Status Note LastModified by Organization Details LastModified Time prednison e 10 mg tablet TAKE 3 TABLETS BY MOUTH EVERY MORNING FOR 5 DAYS THEN TAKE 2 TABLETS EVERY MORNING FOR 5 DAYS THEN TAKE 1 TABLET EVERY MORNING FOR 5 DAYS active Not Available Not Available No t Available clindamyc in HCl 300 mg capsule TAKE 1 CAPSULE BY MOUTH TWICE DAILY 12/19 completed Not Available Not Available Not Available minocycli ne 100 mg capsule TAKE 1 CAPSULE BY MOUTH TWICE DAILY FOR 14 DAYS active Not Available Not Available No t Available promethaz ine 12.5 mg tablet Take 1 tablet 4 times a day by oral route. 06/11 completed Not Available Not Available Not Available ondansetr on HCl 4 mg tablet 06/11 completed Not Available Not Available Not Available methylpre dnisolone 4 mg tablet TAKE 1 TABLET BY MOUTH TWICE DAILY 01/23 completed Not Available Not Available Not Available clobetaso l 0.05 % topical cream RUB IN WELL TWICE DAILY TO INVOLVED AREAS OF BODY UNTIL CLEAR 06/11 completed Not Available Not Available Not Available triamcino lone acetonide 0.1 % topical cream APPLY TOPICALL Y TO THE AFFECTED AREA TWICE DAILY UNTIL GONE. RUB IN WELL 06/11 completed Not Available Not Available Not Available triamcino lone acetonide 0.025 % topical cream APPLY TOPICALL Y TO THE AFFECTED AREA TWICE DAILY UNTIL GONE. RUB IN WELL active Not Available Not Available No t Available Zoloft 50 mg tablet take 1 tablet by oral route every day 05/21 completed Prescrib ed Elsewher e: No Locat ion: [facility] odify By: dunia javierunter DateTime : 10/21/19 16 01:00:00 PM Not Available Not Available Not Available cephalexi n 500 mg capsule 06/11 completed Not Available Not Available Not Available pantopraz ole 40 mg tablet,de layed release TAKE 1 TABLET BY MOUTH EVERY DAY 01/23 completed Not Available Not Available Not Available promethaz ine 25 mg tablet take 1 tablet by oral route every 4 - 6 hours as needed 10/20 completed Prescrib ed Elsewher e: No Locat ion: [facility] odify By: smcaley Derek r DateTime : 02/12/20 15 03:00:00 PM Not Available Not Available Not Available sertralin e 25 mg tablet TAKE 1 TABLET BY MOUTH EVERY DAY DIRECTED 2023 active Not Available Not Available Not Avai lable buspirone 7.5 mg tablet TAKE 1 TABLET BY MOUTH TWICE DAILY active Not Available Not Available No t Available hydroxyzi ne HCl 25 mg tablet TAKE 1 TO 2 TABLETS BY MOUTH AT BEDTIME NEEDED 06/11 completed Not Available Not Available Not Available methylpre dnisolone 4 mg tablets in a dose pack FOLLOW PACKAGE DIRECTIO NS 06/11 completed Not Available Not Available Not Available albuterol sulfate HFA 90 mcg/actua tion aerosol inhaler INHALE 2 PUFFS BY MOUTH FOUR TIMES DAILY NEEDED FOR SHORTNES S OF BREATH OR WHEEZING 06/11 completed Not Available Not Available Not Available Vitamin D2 1,250 mcg (50,000 unit) capsule take 1 capsule by oral route every week 10/20 completed Prescrib ed Elsewher e: No Locat ion: [facility] odify By: jonathan Damasote r DateTime : 07/14/19 16 04:10:41 PM Not Available Not Available Not Available fluticaso ne propionat e 50 mcg/actua tion nasal spray,alysha pension active Not Available Not Available Not Available amoxicill in 875 mg-potass ium clavulana te 125 mg tablet TAKE 1 TABLET BY MOUTH EVERY 12 HOURS FOR 7 DAYS 12/12 completed Not Available Not Available Not Available amoxicill in 500 mg-potass ium clavulana te 125 mg tablet active Not Available Not Available Not Available azithromy teresa 500 mg tablet take 2 tablet by oral route once 10/20 completed Prescrib ed Elsewher e: No Locat ion: [facility] car[facility] odify By: jonathan Encounte r DateTime : 06/17/19 16 10:30:00 AM Not Available Not Available Not Available ciproflox acin 0.3 %-dexamet hasone 0.1 % ear drops,alysha pension INSTILL 4 DROPS INTO EACH EAR EVERY 12 HOURS FOR 7 DAYS 12/19 completed Not Available Not Available Not Available bupropion HCl XL 300 mg 24 hr tablet, extended release TAKE 1 TABLET BY MOUTH DAILY IN THE MORNING active Not Available Not Available No t Available bupropion HCl XL 150 mg 24 hr tablet, extended release TAKE 1 TABLET BY MOUTH DAILY IN THE MORNING active Not Available Not Available No t Available nitrofura ntoin monohydra te/macroc rystals 100 mg capsule TAKE 1 CAPSULE BY MOUTH EVERY 12 HOURS FOR 7 DAYS DIRECTED 11/07 completed Not Available Not Available Not Available ProChambe r USE DIRECTED 06/11 completed Not Available Not Available Not Available + DHA 28 mg iron-975 mcg-200 mg oral pack take 1 tablet by by mouth route every day 01/23 completed Prescrib ed Elsewher e: No Locat ion: [facility] odify By: carlos juan DateTime : 06/05/19 17 04:01:15 PM Not Available Not Available Not Available Diclegis 10 mg-10 mg tablet,de layed release take 1 tablet by oral route every day in the morning, 1 tablet in the mid-afte rnoon, and 2 tablets at bedtime 10/20 completed Prescrib ed Elsewher e: No Locat ion: Adriana haris [facility] odify By: [email or web address] Derek francisco DateTime : 02/12/20 15 03:00:00 PM Not Available Not Available Not Available Lomedia 24 Fe 1 mg-20 mcg (24)/75 mg (4) tablet take 1 tablet by oral route every day 05/21 completed Prescrib ed Elsewher e: No Locat ion: [facility] odify By: dunia kramer DateTime : 10/21/19 16 01:00:00 PM Not Available Not Available Not Available ID NOW COVID-19 Test Kit TEST DIRECTED TODAY 07/09 completed Not Available Not Available Not Available BinaxNOW COVID-19 Ag Self Test kit TEST DIRECTED TODAY 07/09 completed Not Available Not Available Not Available Vitals Date Recorded Body height Body mass index (BMI) Body weight Systolic blood pressure Diastolic blood pressure Provider Name and Address Organization Details Last Updated DateTime 11/19/2022 170.18 cm 34.5 kg/m2 89788.32 14 g 99 mm[Hg] 67 mm[Hg] Daphne Wolf [facility] 3 12:42:28 Date Recorded Body height Body mass index (BMI) Body weight Systolic blood pressure Diastolic blood pressure Provider Name and Address Organization Details Last Updated DateTime 12/03/2022 170.18 cm 34.8 kg/m2 093649.5 0614 g 121 mm[Hg] 78 mm[Hg] Anjali Roche [facility] 3 10:08:09 Date Recorded Body height Body mass index (BMI) Body weight Systolic blood pressure Diastolic blood pressure Provider Name and Address Organization Details Last Updated DateTime 12/12/2022 170.18 cm 34.8 kg/m2 911024.5 0614 g 127 mm[Hg] 83 mm[Hg] Anjali Roche [facility] 3 10:36:07 Date Recorded Body height Body mass index (BMI) Body weight Systolic blood pressure Diastolic blood pressure Provider Name and Address Organization Details Last Updated DateTime 12/19/2022 170.18 cm 35.2 kg/m2 396814.2 8325 g 122 mm[Hg] 73 mm[Hg] Anjali Roche [facility] 3 14:35:53 Date Recorded Body height Body mass index (BMI) Body weight Systolic blood pressure Diastolic blood pressure Provider Name and Address Organization Details Last Updated DateTime 01/23/2023 170.18 cm 32 kg/m2 98023.84 g 122 mm[Hg] 78 mm[Hg] Anjali Roche [facility] 3 10:46:58 Social History Question Answer Notes LastModified by Organizat ion Details LastModified Time Tobacco Smoking Status Never Smoker Anjali Roche [facility] 05/29/2022 18:44:23 What Is Your Level Of Alcohol Consumption? None Information not available 05/29/2022 If You Are , What Was Your Level Of Alcohol Consumption Prior To ? Occasional [email or web address] Information not available 05/29/2022 Are You Blind Or Do You Have Difficulty Seeing? No [email or web address] Information n ot available 05/29/2022 What Is Your Level Of Caffeine Consumption? Occasional [email or web address] Information not available 05/29/2022 In The 14 Days Before Symptom Onset, Have You Had Close Contact With A Laboratory-confirm ed COVID-19 While That Case Was Ill? No [email or web address] Information n ot available 05/29/2022 In The 14 Days Before Symptom Onset, Have You Had Close Contact With A Person Who Is Under Investigation For COVID-19 While That Person Was Ill? No [email or web address] Information not available 05/29/2022 Have You Been To An Area Known To Be High Risk For COVID-19? No [email or web address] Information not available 05/29/2022 Are You Deaf Or Do You Have Serious Difficulty Hearing? No [email or web address] Information not available 05/29/2022 What Type Of Diet Are You Following? REGULAR [email or web address] Information n ot available 05/29/2022 Do You Use Your Seat Belt Or Car Seat Routinely? Yes Information not available 05/29/2022 Do You Have Smoke And Carbon Monoxide Detectors In Your Home? Yes [email or web address] Information not available 05/29/2022 Do You Feel Stressed (tense, Restless, Nervous, Or Anxious, Or Unable To Sleep At Night)? [id number] [email or web address] Information not available 05/29/2022 Do You Use Any Illicit Or Recreational Drugs? No [email or web address] Information not available 05/29/2022 Do You Use Sunscreen Routinely? Yes Information not available 05/29/2022 Has Tobacco Cessation Counseling Been Provided? No Information not available 05/29/2022 Do You Or Have You Ever Used Any Other Forms Of Tobacco Or Nicotine? No [email or web address] Information not available 05/29/2022 Sex: Unknown Functional Status Question Answer Note LastModified by Organizat ion Details LastModified Time Do you have difficulty walking or climbing stairs? No [email or web address] Information not available 05/29/2022 Are you able to walk? YESWOREST [email or web address] Information not available 05/29/2022 Are you able to care for yourself? Yes [email or web address] Information not available 05/29/2022 Do you have difficulty dressing or bathing? No Information not available 05/29/2022 What is your exercise level? Occasional [email or web address] Information not available 05/29/2022 Mental Status None recorded. Family History Relationship Description Onset Age of this Age Resolved Age Notes LastModified by Organization Details LastModified Time Mother Blood coagulation disorder [email or web address] Not available 05/29 18:41:33 Mother Malignant neoplasm of ovary [email or web address] Not available 05/29 18:41:43 Mother Asthma [email or web address] Not available 05/29/2022 18:41:52 Mother Hypertensive disorder [email or web address] Not available 05/29 18:42:01 Father Diabetes mellitus Not available 05/29 18:42:09 Father Hypercholest erolemia [email or web address] Not available 05/29 18:42:20 Father Mental disorder [email or web address] Not available 05/29 18:42:47 Father Hypertensive disorder [email or web address] Not available 05/29 18:42:53 Father Disorder of thyroid gland [email or web address] Not available 05/29 18:43:08 Maternal Grandmother Heart disease [email or web address] Not available 05/29 18:43:22 Maternal Grandfather Mental disorder [email or web address] Not available 05/29 18:43:34 Paternal Grandfather Disorder of thyroid gland [email or web address] Not available 05/29 18:43:43 Medical History Condition Response Allergies (Food, seasonal, environmental ) N Other Y Breast Cancer N Drug/Latex Allergies/Reactions Y Blood Transfusion N Dermatologic Disorders N Lung Disease N Defects or Inherited Disease N Breast Problem N Gestational Diabetes N Hematologic disorders N Anesthesia Complications N History of STI Y Deep Vein Thrombosis N Polycystic ovary syndrome N Anxiety Disorder Y Autoimmune disease N Arthritis N Infertility N Polyps N Acid Reflux (GERD) Y History of abnormal pap N Cancer N Stroke N Varicosities N Neurologic/Epilepsy N Endometriosis N High Cholesterol N Headaches N Fibromyalgia N Kidney Disease N Heart Problems N Kidney or Bladder Problems N Thyroid Problems N GI Problems N Eating Disorder N Anemia N Art (IVF or FET) N Psychiatric Illness N Ovarian Cancer N Diabetes N Pulmonary (TB, Asthma) N Hepatitis/Liver Disease N No Past Medical History N Eczema N Urinary Tract Infection N Abuse/Domestic Violence N Asthma N Trauma/Violence N Depression/ depression Y Heart Disease N Pre-Eclampsia N Hypertension N Osteoporosis N Thrombophilias N Gynecological History Statement/Question Response STIs/STDs Y Date of Last Pap Smear 05/21/2022 Current Control Method None Date of LMP 03/23/2022 LMP Approximate Obstetrics History GPAL:G 4 P 3 0 1 3 Type Value Full Term 3 Spontaneous 1 Living 3 Total 4 Past Encounters Encounter ID Performer Location Encounter Start Date Encounter Closed Date Diagnosis/Indication Diagnosis SNOMED-CT Code Diagnosis ICD10 Code Diagnosis Note [id number] Leana Juares CNM [facility] [address] [address] 05/21/2022 09:31:31 05/22/2022 17:42:42 test positive 435614221 Z32.01 Risk factors addressed: Tobacco Cessation, Safe Sexual Practices, environmen michelle, work hazards, travel restrictio ns, seat belt use.Eat a health well balanced diet, avoid alcohol, tobacco, and street drugs.Enga ge in daily low impact exercise, avoid temperatur e extremes, and cat, rodent, and bird feces.Avoi d travel to areas where zika virus is a concern.Of fered cf/sma/nip t. Handouts given and discussed with patient.Ch ildbirth classes recommende d.New OB sheet given.If previous , counseling . U/S to follow visit.Pt verbalizes that she understand s the importance of above instructio ns.All questions were answered.P atient reminded to have annual well woman examinatio n and address preventati ve healthcare . Gynecologi c examination 88514629 Z01.419 Z11.3 Nausea 615682863 R11.0 Discussed risks and benefits of zofran before 10 weeks. [place] to [place]. [id number] Michael Perera MD [facility] [address],[place] [address] 05/21/2022 09:31:50 05/21/2022 10:56:44 [id number] Michale Perera MD [facility] [address],[place] [address] 06/11/2022 11:00:53 06/11/2022 11:29:47 screening 021013221 Z36.82 [id number] Michael Perera MD [facility] [address],[place] [address] 06/11/2022 11:01:07 06/11/2022 12:59:26 Routine care 332223973 Z34.81 [id number] [facility] [address],[place] [address] 07/09/2022 09:27:45 07/09/2022 11:03:41 Routine care 300666532 Z34.92 [id number] Michael Perera MD [facility] [address],[place] [address] 08/06/2022 08:54:39 08/06/2022 10:23:05 screening for malformation 882722291 Z36.3 [id number] Michael Perera MD [facility] [address],[place] [address] 08/06/2022 08:55:05 08/07/2022 11:42:34 Routine care 274333405 Z34.81 [id number] MD Aleena Sood [address] [address] 09/03/2022 13:52:56 09/03/2022 14:32:22 screening 217219123 Z36.2 [id number] MD Aleena [place] [address] [address] 09/03/2022 13:53:12 09/03/2022 15:03:02 Routine care 543719133 Z34.82 [id number] MD Nevin [place] [address],[place] [address] 10/08/2022 09:56:17 10/08/2022 13:40:57 Gastroesophageal reflux disease 007659277 K21.9 Uterine si ze for dates discrepancy 515452736 O26.849 [id number] MD Nevin [place] [address],[place] [address] 10/22/2022 12:40:11 10/22/2022 13:15:58 Routine care 269782415 Z34.82 [id number] MD Aleena [place] [address],[place] [address] 11/07/2022 15:59:49 11/07/2022 17:23:28 Routine care 094338951 Z34.82 [id number] MD Aleena [place] [address] [place] [address] 11/19/2022 11:22:04 11/19/2022 12:34:07 Uterine size for dates discrepancy 459968621 O26.843 Z3A.34 [id number] MD Aleena [place] [address],[place] [address] 11/19/2022 11:22:30 11/19/2022 13:18:34 Routine care 958458324 Z34.82 [id number] [facility] [address],[place] [address] 12/03/2022 10:01:14 12/03/2022 11:38:45 Urinary symptoms 500642379 R39.9 Routine an tenatal care 935119708 Z34.92 [id number] [facility] [address],[place] [address] 12/12/2022 10:12:04 12/12/2022 11:10:37 Routine care 681776308 Z34.92 [id number] [facility] [address],[place] [address] 12/19/2022 14:27:44 12/19/2022 14:54:46 Routine care 754210694 Z34.92 [id number] Yessenia Jones [facility] [address],[place] [address] 01/23/2023 10:05:27 01/23/2023 11:21:35 care 438570812 Z39.2 call if desires IUD, f/u wwemonitor mood Health Concerns Section Related Observation LastModified by Organization Detai ls LastModified Time None Recorded Concern Status LastModified by Organization Details LastModified Time None Recorded Advance Directives Directive None Recorded Payers Encounter Date Sequence Insurance Name Policy Number Policy Mueller Covered Member ID Mueller Member ID Guarantor Name 11/19/2022 1 [facility] ON OR AFTER 09/01/20 (MEDICAID REPLACEMENT - HMO) Elo Rdz [id number] Elo Rdz 11/19/2022 1 [facility]: (PPO) [id number] V Elo Rdz [id number] Elo Rdz 12/03/2022 1 [facility] ON OR AFTER 09/01/20 (MEDICAID REPLACEMENT - HMO) Elo Kajal [id number] Elo Kajal 12/03/2022 1 [employer] [id number] V Elo Kajal [id number] Elo Kajal 12/12/2022 1 [facility] ON OR AFTER 09/01/20 (MEDICAID REPLACEMENT - HMO) Elo Kajal [id number] Elo Kajal 12/12/2022 1 [place] [id number] V Elo Kajal [id number] Elo Kajal 12/19/2022 1 [facility] ON OR AFTER 09/01/20 (MEDICAID REPLACEMENT - HMO) Elo Kajal [id number] Elo Kajal 12/19/2022 1 [place] [id number] V Elo Kajal [id number] Elo Kajal 01/23/2023 1 [facility] ON OR AFTER 09/01/20 (MEDICAID REPLACEMENT - HMO) Elo Kajal [id number] Elo Kajal 01/23/2023 1 [employer] [id number] V Elo Kajal [id number] Elo Kajal Notes Date Note Type Note Provider Name and Address Organization Details Recorded Time 01/23/2023 text/html VisitReported bypatient.Quality:N Context:complicatio ns of : none; complications of labor: none; complications: none; feeding choice: bottle; good support from partner/family; resumed menstrual bleeding no Associated Symptoms:no abnormal bleeding; no vaginal discharge; no pelvic pain; laceration well healed; no constipation; no fecal incontinence; no dysuria; no urinary incontinence;baby blues; mood getting better Contraception Plan:IUDNotes:doing well considering IUD paragard vs nicole Roche [facility] 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 Status 05/30/19 23 1 CLOSED Fetus Data First Name Last Name Admitted to NICU Weight (g) Sex Living Outcome Pediatric Complications Fetus ID Race Codes Race Delivery Type , Spontane ous [id number] Watson Calculation Initial Watson Date Initial Exam Date Initial Exam Provider [...] Post Complications Tubal Sterilization Discharge Date Comments 1 Discharge Information Feeding Method Contraceptive Method Maternal HG B and HCT Levels Ob Episode Information Episode Created Date Number of Fetuses Patient Bloodtype Patient rh Status Prepregnancy Weight lbs Domestic Partner Domestic Partner Phone 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 Status 05/30/19 23 1 CLOSED Fetus Data First Name Last Name Admitted to NICU Weight (g) Sex Living Outcome Pediatric Complications Fetus ID Race Codes Race Delivery Type 3685.43 5 M Full Term 00407 Vaginal Delivery Watson Calculation Initial Watson Date Initial Exam Date Initial Exam Provider [...] Complications Tubal Sterilization Discharge Date Comments 7 39 Discharge Information Feeding Method Contraceptive Method Maternal HG B and HCT Levels Ob Episode Information Episode Created Date Number of Fetuses Patient Bloodtype Patient rh Status Prepregnancy Weight lbs Domestic Partner Domestic Partner Phone

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
--- OUTSIDE RECORDS SUMMARY | 2024-07-08 09:30 | XMS_ITS | Patient Health Record ---
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 Name Role Phone Heather Baires Primary Care Provider Allergies Allergen (clinical drug ingredient) Drug/Non Drug Allergy documented on EMR Reaction Allergy Type Onset Date Status Keflex hives Drug Allergy Active Latex Latex hives Allergy Active Reason For Referral No Information Medications Medication SIG (Take, Route, Fr equency, Duration) Notes Start Date End Date Status Wellbutrin XL 300 MG 1 tablet in the mor stew Orally Once a day for 30 days Active busPIRone HCl 7.5 MG 1 tablet Orally Twi ce a day for 30 days Active Social History Tobacco Use: Social History Observation Description Date Details (start date - stop date) Never Smoker NA - NA Tobacco Control (Standard) Question Answer Notes Tobacco use: Nonsmoker Problems Problem Type SNOMED Code ICD Code Onset Dates Problem Status W/U Status Risk Notes Problem Anxiety (17333955) Anxiety (F41.9) Active confirmed Problem Attention deficit hyperactivity disorder, 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), inattentive type (F90.0) Active confirmed Problem Panic disorder (239092711) Panic disorder (F41.0) Active confirmed Encounters Encounter Location Date Provider Diagnosis [address] [address] 12/16/2023 Heather Baires ADHD (attention deficit hyperactivity disorder), inattentive type F90.0 ; Panic disorder F41.0 ; Anxiety F41.9 and Binge eating disorder, mild F50.[address] [address] 12/30/2023 Heather Viry ADHD (attention deficit hyperactivity disorder), inattentive type F90.0 ; Panic disorder F41.0 ; Anxiety F41.9 and Binge eating disorder, mild F50.810 [facility] [address] [address] 01/20/2024 Heather Viry ADHD (attention deficit hyperactivity disorder), inattentive type F90.0 [facility] [address] [address] 03/17/2024 Heather Viry ADHD (attention deficit hyperactivity disorder), inattentive type F90.0 and Anxiety F41.9 [place] [address] [place] [id number] 05/06/2024 Heather Viry ADHD (attention deficit hyperactivity disorder), inattentive type F90.0 and Anxiety F41.[address] [place] [address] 12/16/2023 Heather Viry [facility] [address] [place] [address] 01/16/2024 Heather Viry ADHD (attention deficit hyperactivity disorder), inattentive type F90.[address] [address] 01/20/2024 Heather Viry ADHD (attention deficit hyperactivity disorder), inattentive type F90.0 Assessments Encounter Date Diagnosis (ICD Code) Assessment Notes Treatment Notes Treatment Clinical Notes Section Notes 12/16/2023 ADHD (attention deficit hyperactivity disorder), inattentive type (ICD-10 - F90.0) Begin bupropion XL. Take as prescribed. Reviewed purpose (target attention and focus), benefits, and risks - including increased risk of suicide, álvaro/hypomania, anxiety, sleep disturbance, agitation, insomnia, and dry mouth. Many of these side effects resolve after taking the medication for 2 weeks. Notify the office if any concerns or significant side effects. Reviewed crisis resources. 12/16/2023 Panic disorder (ICD-10 - F41.0) 01/16/2024 ADHD (attention deficit hyperactivity disorder), inattentive type (ICD-10 - F90.0) 01/20/2024 ADHD (attention deficit hyperactivity disorder), inattentive type (ICD-10 - F90.0) Continue bupropion XL. Take as prescribed. Reviewed purpose (target attention and focus), benefits, and risks - including increased risk of suicide, álvaro/hypomania, anxiety, sleep disturbance, agitation, insomnia, and dry mouth. Many of these side effects resolve after taking the medication for 2 weeks. Notify the office if any concerns or significant side effects. Reviewed crisis resources. Call for problems with medication, side effects or need for dosage change. 01/20/2024 ADHD (attention deficit hyperactivity disorder), inattentive type (ICD-10 - F90.0) 12/30/2023 ADHD (attention deficit hyperactivity disorder), inattentive type (ICD-10 - F90.0) Continue bupropion XL. Take as prescribed. Reviewed purpose (target attention and focus), benefits, and risks - including increased risk of suicide, álvaro/hypomania, anxiety, sleep disturbance, agitation, insomnia, and dry mouth. Many of these side effects resolve after taking the medication for 2 weeks. Notify the office if any concerns or significant side effects. Call for problems with medication, side effects or need for dosage change 03/17/2024 ADHD (attention deficit hyperactivity disorder), inattentive type (ICD-10 - F90.0) Continue bupropion XL. Take as prescribed. Reviewed purpose (target attention and focus), benefits, and risks - including increased risk of suicide, álvaro/hypomania, anxiety, sleep disturbance, agitation, insomnia, and dry mouth. Many of these side effects resolve after taking the medication for 2 weeks. Notify the office if any concerns or significant side effects. Call for problems with medication, side effects or need for dosage change 05/06/2024 ADHD (attention deficit hyperactivity disorder), inattentive type (ICD-10 - F90.0) 12/16/2023 Anxiety (ICD-10 - F41.9) 05/06/2024 Anxiety (ICD-10 - F41.9) 12/30/2023 Panic disorder (ICD-10 - F41.0) 03/17/2024 Anxiety (ICD-10 - F41.9) Begin buspirone. Take as prescribed. Reviewed purpose - decrease anxiety, benefits, and risks - dizziness, headache, nervousness, sedation, excitement, nausea, and restlessness. Call for problems with medication, side effects or need for dosage change. 12/16/2023 Binge eating disorder, mild (ICD-10 - F50.810) 12/30/2023 Anxiety (ICD-10 - F41.9) 12/30/2023 Binge eating disorder, mild (ICD-10 - F50.810) 12/16/2023 Other Plan: -Start Wellbutrin XL 150 mg once daily in the morning. Discusses side effects and to d/c the medication if symptoms of depression or anxiety worsen. -Educated pt about stopping ashwaganda due to possible interactions with other medication. -Pt is due to see PCP 12/17/23, she was asked to call the RN line to have the results sent to me of any labs. -Follow up: 2-3 weeks [] Hard Rx handed to patient [] Rx phoned into pharmacy [x] Rx faxed/e-prescribed into pharmacy [] PDMP Reviewed [] [facility] Reviewed Encouraged by Heather LAUREANOP-BC to: [x] consider utilizing therapist/counselor /social professionals/psychologist , referral given [] continue with therapist/counselor /social professionals/psychologist Psychoeducation: -Treatment options discussed in detail with patient/guardian verbalizing understanding of treatment rationales. -Side effects and benefits of all medications prescribed discussed at length between psychiatric prescribing provider and patient/guardian along with the risks associated of qfrr-ij-ybpj interactions, including but not limited to prescription medications, OTC medications, vitamins, minerals and herbal supplements. -Patient/Guardian and provider dialogue showcased verbalized understanding from patient on rationales of medication risk vs benefits. -Information with neurobiology of presenting neurotransmitter disorder, mood stability, sleep hygiene and 7-8 hours of uninterrupted sleep per night with wakeful and refreshed awakening and day long alertness discussed. -Reduction of stress and anxiety to aid in focus and concentration discussed, again, with patient/guardian physically nodding, voicing understanding, and engaged in treatment plan with Heather LAUREANOP-BC. -Perceiving complete understanding of rationale by patient/guardian and willingness to adhere to formulated plan of care by prescriber with patient/guardian buy-in, willingness to participate actively in plan of care and willing to take charge of own care. -Although geared for female patients, all patients/guardians are informed by prescribing provider of risks of medications that could potentially be taken by female/women within their [place] of influence and that women who use medicine during have a higher chance of having a baby with defects. -Patient/Guardian denies being and/or knowing of women who are at present and denies wanting to become in the foreseeable future, 0-6 months from now. -Patient/Guardian again informed of the risk of pharmaceutical medications consumed during and how there are potential negative effects on the developing fetus. -Patient/Guardian verbalizes understanding of rationale and physically nods head in agreement that if a should occur, to consult with provider, STATOR WINDER and/or Nurse Spiral Weaver to determine if prescribed medications should or should not be continued. -Instructions regarding both the medical/pharmacolog ical and non-pharmacologic aspects of the treatments employed were given, and the patient/guardian seemed to understand this. Risks and benefits of treatment, and of non-treatment, were also discussed. The patient/guardian understands the more frequent side effects associated with the medications. -The use of psychotherapy was addressed today and will continue on an as needed basis for the foreseeable future. The choice is, of course, ultimately left to the patient/guardian. -Patient/Guardian was encouraged to make a follow-up appointment for the next visit. -Additional treatment was discussed and has been addressed on an ongoing basis within the context of this patient's illness, resources, progress, and other appropriate factors. Being compliant with a regular exercise routine, consistent medication use, ongoing psychotherapy, eating and sleeping well, as well as the importance of handling stress, was discussed. 12/30/2023 Other May self-administer medications or be administered own oral medications per [place] protocols. Provided informed consent with understanding of side effects, adverse effects, risks and benefits as well as alternative treatments as previously discussed and with the above recommended medications & other aspects of the treatment program. Agrees to return sooner if symptoms worsen or suicidal or homicidal ideations occur. Plan: -Continue Wellbutrin XL 150 mg once daily -Follow up: 4 weeks [] Hard Rx handed to patient [] Rx phoned into pharmacy [] Rx faxed/e-prescribed into pharmacy [x] PDMP Reviewed [] [facility] Reviewed Encouraged by Heather Baires [facility] to: [x] consider utilizing therapist/counselor /social professionals/psychologist , referral given [] continue with therapist/counselor /social professionals/psychologist Psychoeducation: -Treatment options discussed in detail with patient/guardian verbalizing understanding of treatment rationales. -Side effects and benefits of all medications prescribed discussed at length between psychiatric prescribing provider and patient/guardian along with the risks associated of btzf-me-hgap interactions, including but not limited to prescription medications, OTC medications, vitamins, minerals and herbal supplements. -Patient/Guardian and provider dialogue showcased verbalized understanding from patient on rationales of medication risk vs benefits. -Information with neurobiology of presenting neurotransmitter disorder, mood stability, sleep hygiene and 7-8 hours of uninterrupted sleep per night with wakeful and refreshed awakening and day long alertness discussed. -Reduction of stress and anxiety to aid in focus and concentration discussed, again, with patient/guardian physically nodding, voicing understanding, and engaged in treatment plan with Heather Baires [facility]. -Perceiving complete understanding of rationale by patient/guardian and willingness to adhere to formulated plan of care by prescriber with patient/guardian buy-in, willingness to participate actively in plan of care and willing to take charge of own care. -Although geared for female patients, all patients/guardians are informed by prescribing provider of risks of medications that could potentially be taken by female/women within their [place] of influence and that women who use medicine during have a higher chance of having a baby with defects. -Patient/Guardian denies being and/or knowing of women who are at present and denies wanting to become in the foreseeable future, 0-6 months from now. -Patient/Guardian again informed of the risk of pharmaceutical medications consumed during and how there are potential negative effects on the developing fetus. -Patient/Guardian verbalizes understanding of rationale and physically nods head in agreement that if a should occur, to consult with provider, STATOR WINDER and/or Nurse Spiral Weaver to determine if prescribed medications should or should not be continued. -Instructions regarding both the medical/pharmacolog ical and non-pharmacologic aspects of the treatments employed were given, and the patient/guardian seemed to understand this. Risks and benefits of treatment, and of non-treatment, were also discussed. The patient/guardian understands the more frequent side effects associated with the medications. -The use of psychotherapy was addressed today and will continue on an as needed basis for the foreseeable future. The choice is, of course, ultimately left to the patient/guardian. -Patient/Guardian was encouraged to make a follow-up appointment for the next visit. -Additional treatment was discussed and has been addressed on an ongoing basis within the context of this patient's illness, resources, progress, and other appropriate factors. Being compliant with a regular exercise routine, consistent medication use, ongoing psychotherapy, eating and sleeping well, as well as the importance of handling stress, was discussed. 01/20/2024 Other May self-administer medications or be administered own oral medications per [place] protocols. Provided informed consent with understanding of side effects, adverse effects, risks and benefits as well as alternative treatments as previously discussed and with the above recommended medications & other aspects of the treatment program. Agrees to return sooner if symptoms worsen or suicidal or homicidal ideations occur. Plan: -Continue Wellbutrin XL 150 mg -Follow up: 2 weeks [] Hard Rx handed to patient [] Rx phoned into pharmacy [x] Rx faxed/e-prescribed into pharmacy [x] PDMP Reviewed [] [facility] Reviewed Encouraged by Heather Baires PMHNP-BC to: [x] consider utilizing therapist/counselor /social professionals/psychologist , referral given [] continue with therapist/counselor /social professionals/psychologist Psychoeducation: -Treatment options discussed in detail with patient/guardian verbalizing understanding of treatment rationales. -Side effects and benefits of all medications prescribed discussed at length between psychiatric prescribing provider and patient/guardian along with the risks associated of omnv-ar-kyrk interactions, including but not limited to prescription medications, OTC medications, vitamins, minerals and herbal supplements. -Patient/Guardian and provider dialogue showcased verbalized understanding from patient on rationales of medication risk vs benefits. -Information with neurobiology of presenting neurotransmitter disorder, mood stability, sleep hygiene and 7-8 hours of uninterrupted sleep per night with wakeful and refreshed awakening and day long alertness discussed. -Reduction of stress and anxiety to aid in focus and concentration discussed, again, with patient/guardian physically nodding, voicing understanding, and engaged in treatment plan with Heather Baires [facility]. -Perceiving complete understanding of rationale by patient/guardian and willingness to adhere to formulated plan of care by prescriber with patient/guardian buy-in, willingness to participate actively in plan of care and willing to take charge of own care. -Although geared for female patients, all patients/guardians are informed by prescribing provider of risks of medications that could potentially be taken by female/women within their [place] of influence and that women who use medicine during have a higher chance of having a baby with defects. -Patient/Guardian denies being and/or knowing of women who are at present and denies wanting to become in the foreseeable future, 0-6 months from now. -Patient/Guardian again informed of the risk of pharmaceutical medications consumed during and how there are potential negative effects on the developing fetus. -Patient/Guardian verbalizes understanding of rationale and physically nods head in agreement that if a should occur, to consult with provider, STATOR WINDER and/or Nurse Spiral Weaver to determine if prescribed medications should or should not be continued. -Instructions regarding both the medical/pharmacolog ical and non-pharmacologic aspects of the treatments employed were given, and the patient/guardian seemed to understand this. Risks and benefits of treatment, and of non-treatment, were also discussed. The patient/guardian understands the more frequent side effects associated with the medications. -The use of psychotherapy was addressed today and will continue on an as needed basis for the foreseeable future. The choice is, of course, ultimately left to the patient/guardian. -Patient/Guardian was encouraged to make a follow-up appointment for the next visit. -Additional treatment was discussed and has been addressed on an ongoing basis within the context of this patient's illness, resources, progress, and other appropriate factors. Being compliant with a regular exercise routine, consistent medication use, ongoing psychotherapy, eating and sleeping well, as well as the importance of handling stress, was discussed. 03/17/2024 Other May self-administer medications or be administered own oral medications per [place] protocols. Provided informed consent with understanding of side effects, adverse effects, risks and benefits as well as alternative treatments as previously discussed and with the above recommended medications & other aspects of the treatment program. Agrees to return sooner if symptoms worsen or suicidal or homicidal ideations occur. Plan: -Start Buspirone 7.5 mg BID -Continue Wellbutrin XL 150 mg once daily -Follow up: 4 weeks [] Hard Rx handed to patient [] Rx phoned into pharmacy [x] Rx faxed/e-prescribed into pharmacy [x] PDMP Reviewed [] [facility] Reviewed Encouraged by Heather Baires [facility]- to: [x] consider utilizing therapist/counselor /social professionals/psychologist [] continue with therapist/counselor /social professionals/psychologist Psychoeducation: -Treatment options discussed in detail with patient/guardian verbalizing understanding of treatment rationales. -Side effects and benefits of all medications prescribed discussed at length between psychiatric prescribing provider and patient/guardian along with the risks associated of hyme-kt-lckt interactions, including but not limited to prescription medications, OTC medications, vitamins, minerals and herbal supplements. -Patient/Guardian and provider dialogue showcased verbalized understanding from patient on rationales of medication risk vs benefits. -Information with neurobiology of presenting neurotransmitter disorder, mood stability, sleep hygiene and 7-8 hours of uninterrupted sleep per night with wakeful and refreshed awakening and day long alertness discussed. -Reduction of stress and anxiety to aid in focus and concentration discussed, again, with patient/guardian physically nodding, voicing understanding, and engaged in treatment plan with Heather Baires [facility]-. -Perceiving complete understanding of rationale by patient/guardian and willingness to adhere to formulated plan of care by prescriber with patient/guardian buy-in, willingness to participate actively in plan of care and willing to take charge of own care. -Although geared for female patients, all patients/guardians are informed by prescribing provider of risks of medications that could potentially be taken by female/women within their [place] of influence and that women who use medicine during have a higher chance of having a baby with defects. -Patient/Guardian denies being and/or knowing of women who are at present and denies wanting to become in the foreseeable future, 0-6 months from now. -Patient/Guardian again informed of the risk of pharmaceutical medications consumed during and how there are potential negative effects on the developing fetus. -Patient/Guardian verbalizes understanding of rationale and physically nods head in agreement that if a should occur, to consult with provider, STATOR WINDER and/or Nurse Spiral Weaver to determine if prescribed medications should or should not be continued. -Instructions regarding both the medical/pharmacolog ical and non-pharmacologic aspects of the treatments employed were given, and the patient/guardian seemed to understand this. Risks and benefits of treatment, and of non-treatment, were also discussed. The patient/guardian understands the more frequent side effects associated with the medications. -The use of psychotherapy was addressed today and will continue on an as needed basis for the foreseeable future. The choice is, of course, ultimately left to the patient/guardian. -Patient/Guardian was encouraged to make a follow-up appointment for the next visit. -Additional treatment was discussed and has been addressed on an ongoing basis within the context of this patient's illness, resources, progress, and other appropriate factors. Being compliant with a regular exercise routine, consistent medication use, ongoing psychotherapy, eating and sleeping well, as well as the importance of handling stress, was discussed. 05/06/2024 Other May self-administer medications or be administered own oral medications per [place] protocols. Provided informed consent with understanding of side effects, adverse effects, risks and benefits as well as alternative treatments as previously discussed and with the above recommended medications & other aspects of the treatment program. Agrees to return sooner if symptoms worsen or suicidal or homicidal ideations occur. Plan: -Continue Buspirone 7.5 mg BID -Increase Wellbutrin XL to 300 mg once daily -Follow up: 2 weeks [] Hard Rx handed to patient [] Rx phoned into pharmacy [x] Rx faxed/e-prescribed into pharmacy [x] PDMP Reviewed [] [facility] Reviewed [facility]: [[facility]] consider utilizing therapist/counselor /social professionals/psychologist [] continue with therapist/counselor /social professionals/psychologist Psychoeducation: -Treatment options discussed in detail with patient/guardian verbalizing understanding of treatment rationales. -Side effects and benefits of all medications prescribed discussed at length between psychiatric prescribing provider and patient/guardian along with the risks associated of rsyf-ok-mfcd interactions, including but not limited to prescription medications, OTC medications, vitamins, minerals and herbal supplements. -Patient/Guardian and provider dialogue showcased verbalized understanding from patient on rationales of medication risk vs benefits. -Information with neurobiology of presenting neurotransmitter disorder, mood stability, sleep hygiene and 7-8 hours of uninterrupted sleep per night with wakeful and refreshed awakening and day long alertness discussed. -Reduction of stress and anxiety to aid in focus and concentration discussed, again, with patient/guardian physically nodding, voicing understanding, and engaged in treatment plan with Heather Baires [facility]. -Perceiving complete understanding of rationale by patient/guardian and willingness to adhere to formulated plan of care by prescriber with patient/guardian buy-in, willingness to participate actively in plan of care and willing to take charge of own care. -Although geared for female patients, all patients/guardians are informed by prescribing provider of risks of medications that could potentially be taken by female/women within their [place] of influence and that women who use medicine during have a higher chance of having a baby with defects. -Patient/Guardian denies being and/or knowing of women who are at present and denies wanting to become in the foreseeable future, 0-6 months from now. -Patient/Guardian again informed of the risk of pharmaceutical medications consumed during and how there are potential negative effects on the developing fetus. -Patient/Guardian verbalizes understanding of rationale and physically nods head in agreement that if a should occur, to consult with provider, STATOR WINDER and/or Nurse Spiral Weaver to determine if prescribed medications should or should not be continued. -Instructions regarding both the medical/pharmacolog ical and non-pharmacologic aspects of the treatments employed were given, and the patient/guardian seemed to understand this. Risks and benefits of treatment, and of non-treatment, were also discussed. The patient/guardian understands the more frequent side effects associated with the medications. -The use of psychotherapy was addressed today and will continue on an as needed basis for the foreseeable future. The choice is, of course, ultimately left to the patient/guardian. -Patient/Guardian was encouraged to make a follow-up appointment for the next visit. -Additional treatment was discussed and has been addressed on an ongoing basis within the context of this patient's illness, resources, progress, and other appropriate factors. Being compliant with a regular exercise routine, consistent medication use, ongoing psychotherapy, eating and sleeping well, as well as the importance of handling stress, was discussed. Plan Of Treatment No Information Insurance Providers Payer Name Payer Address Payer Phone Subscriber Number Group Number Insured Name Patient Relationship to Insured Coverage Start Date Coverage End Date [facility] [address] [place] [address] [id number] Elo Rdz Self - patient is the insured 7 2 [facility] Claims Department [address] [facility] [address] [place] [address] [phone] [id number] Elo dRz Self - patient is the insured 4 [facility] Claims Department [address] [facility] [address] [place] [address] [phone] [id number] Elo Rdz Self - patient is the insured 5 Medical (General) History Medical History History ICD Code anxiety depression Surgical History Surgery Date(Month/Year) tonsillectomy 2002 Hospitalization History Reason Date(Month/Year) childbirth 2022 childbirth 2016 childbirth 2015
--- OUTSIDE RECORDS SUMMARY | 2024-07-08 09:30 | XMS_ITS | Continuity of Care Document ---
Author Organization [facility] Address [address] [place] [address] Phone Care Team Providers Care Foam Gun Operator Name Role Phone Fairchild OD, [place] Unavailable Unavailable Procedures Procedure Date Eye Exam & Treatment Refraction Eye Exam & Treatment Refraction Office/outpatient Visit, Est Advance Directives Directive Yes / No Effective Date File Name No Information Encounters Encounter Description Practice Location Reason(s) For Visit Diagnoses Date Provider Providers Copied on Encounter [facility], [address] [place] [address] [address], [place], [place], [id number], tel:[phone] SEC [facility] No Information 4-201 0 Fairchild OD [place]. [address], [place], [place], [facility], [place]. tel:[phone] [facility], [address], [place], [place], [id number], [place] tel:[phone] [facility] No Information 3-200 7 Fairchild OD [place]. [address], [place], [address], [place]. tel:[phone] Office/outpat ient Visit, Est [facility], [address] [place] [address] [address], [place], [place], [id number], [place] tel:[phone] [facility] No Information 0200 7 Yamileth Lezama. [address] [facility], [address], [place], [place], [id number], [place]. tel:[phone] Family History Family Member Type Diagnosis Age At Onset No Information Payers Payer name Insurance type Covered democrat ID Authordereck esparza(s) [facility] CI [id number] Social History Type Description Quantity Date Captured Comments Sex Female Smoking Status No Information Chief Complaint And Reason For Visit No Information Reason For Referral Reason For Referral No Information History Of Present Illness Encounter Date Complaint History Of Prese nt Illness No Information Functional Status Date Functional Assessmen t No Information Instructions Date Instruction Additional Infor mation No Information Assessments Type Assessment Date No Information Patient Care Teams Name Effective Dates (start - stop) Status Members No Information
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
--- OUTSIDE RECORDS SUMMARY | 2024-07-08 09:30 | XMS_ITS | Clinical Summary ---
Author Organization [facility] Address [address] 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
--- OUTSIDE RECORDS SUMMARY | 2024-07-08 09:30 | XMS_ITS | Referral Summary ---
Author Organization [facility] Address [address] [place] [address] Care Team Providers Care Semiconductor Wafers Saw Operator Name Role Phone Keena James MD Unavailable [phone] Keena James MD Unavailable Aleksandar Dunn DO Primary Care Provider [phone] Allergies Active Allergy Reactions Criticality Noted Date Comments Cephalexin Hives,Itching,Urticaria Medium 11/23/2011 Hives Latex Hives,Swelling Medium 05/22/2010 Hives Medications [id number] a-epa-fish oil 400 mcg-35 mg -25 mg-5 [...] 06/18/2022 Assessment & Plan (05/07/2022 3:20 PM ANNEALING FURNACE TENDER): Reviewed US from today with pt. Advised [...] PRN. Assessment & Plan (04/30/2022 3:54 PM ANNEALING FURNACE TENDER): Discussed with pt and indeterminate viability vs. [...] time spent in any separately reportable service. 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 Not on file Not on file Not on file Last Filed Vital Signs [...] 11/15/2022 5:02 PM CDT Plan of Treatment Not on file Procedures Procedure Name Priority Date/Time Associated Diagnosis [...] AM CDT Narrative 11/02/2019 9:42 AM CDT [address] [address] Tele: Renetta Saleh MD - Laundry Or Dry Cleaners Counter Clerk CYTOLOGY REPORT Patient Name: CATIA TOWNSEND Address: [address] [place] [address] Gender: F : 1995 (Age: 24) Service: Laboratory Location: Lab [facility] #: [id number] Patient Type: Ref Lab Taken: 10/21/2019 Received: 10/24/2019 Reported: 11/02/2019 Physician(s): NADIA Lyons M.D. FINAL DIAGNOSIS: Specimen Type: - ThinPrep Pap w/ reflex HPV Statement of Specimen Adequacy: Source: Cervical/Endocervical - Satisfactory for interpretation - Endocervical /Transformation Zone component present - Case screened using computer assisted imaging technology and manually re- screened by a medical sociologist. General Categorization: - Epithelial cell abnormality Interpretation: - Atypical squamous cells of undetermined significance (ASCUS) - Shift in christopher suggestive of Bacterial Vaginosis - Acute Inflammation - Specimen sent for reflex HPV testing; Report to follow as/11/02/2019 09:42 Examining Pathologist: Lang Hale CT (ASCP) Report Reviewed and Electronically Signed By Evens Bronson M.D. Clerical Data Follow A; G0145, 71077 N89.8 Z01.419 Z11.3 Z11.51 Z12.4 ADDENDA: Addendum [...] recommended by your physician or nurse practitioner. 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 LAB CYTOLOGY ORDERABLES Final Result * Serum Hepatitis C ab (12/13/2014 5:23 PM CDT) HCV ab Non-Reacti ve Non-Reacti ve HISTORICAL RESULTS Serum 12/13/2014 5:23 PM CDT Keena James MD LAB BLOOD ORDERABLES Final Re sult HISTORICAL RESULTS from Last 3 Months or Most Recently Relevant to Health Maintenance Insurance [facility] [employer] net [facility] [place] [address] [address] Care Teams Semiconductor Wafers Saw Operator Relationship Specialty Start Date End Date Aleksandar Dunn DO [address] [place] [address] PCP - General Internal Medicine 11/15/22 Keena James MD [address] [place] [address] Consulting Physician Obstetrics and Gynecology 04/26/22 Keena James MD [address] [place] [address] Consulting Physician Obstetrics and Gynecology 04/30/22
--- OUTSIDE RECORDS SUMMARY | 2024-07-08 09:32 | XMS_ITS | Continuity of Care Document ---
Author Organization [facility] Address [address] [place] [address] Phone Care Team Providers Care Noise Tester Name Role Phone Fairchild OD, [place] Unavailable Unavailable Procedures Procedure Date Eye Exam & Treatment Refraction Eye Exam & Treatment Refraction Office/outpatient Visit, Est Advance Directives Directive Yes / No Effective Date File Name No Information Encounters Encounter Description Practice Location Reason(s) For Visit Diagnoses Date Provider Providers Copied on Encounter [facility], [address] [place] [address] [address], [place], [place], [id number], tel:[phone] SEC [facility] No Information 4-201 0 Fairchild OD [place]. [address], [place], [place], [facility], [place]. tel:[phone] [facility], [address], [place], [place], [address], [place] tel:[phone] [facility] No Information 3-200 7 Fairchild OD [place]. [address], [place], [address], [place]. tel:[phone] Office/outpat ient Visit, Est [facility], [address] [place] [address] [address], [place], [place], [address], [place] tel:[phone] SEC [facility] No Information 0200 7 Yamileth Lezama. [address] [facility], [place], [place], [id number], [place]. tel:[phone] Family History Family Member Type Diagnosis Age At Onset No Information Payers Payer name Insurance type Covered democrat ID Authordereck esparza(s) [facility] CI [id number] Social History Type Description Quantity Date Captured [...]
--- NOTE | 2024-07-08 09:38 | ED.EYEPROB ---
HPI - Eye Problem General Chief complaint: Eye Problems Stated complaint: stye Time Seen by Provider: 07/08/24 09:38 Source: patient Mode of arrival: ambulatory Limitations: no limitations History of Present Illness HPI Narrative: 29-year-old female presents complaint of redness, swelling, tenderness to left upper eyelid for 4 days. Using an [id number] stye eyedrop with no relief of symptoms. No vision changes. No drainage. All systems reviewed and negative except as noted above. Related Data Home Medications ?Medication ?Instructions ?Recorded ?Confirmed ?Last Taken ?Type bupropion HCl 150 mg 24 hr tablet, 150 mg PO QAM 12/16/23 07/08/24 Unknown History extended release (Wellbutrin XL) bupropion HCl 300 mg 24 hr tablet, mg PO 07/08/24 Unknown History extended release buspirone 7.5 mg tablet mg 07/08/24 Unknown History Allergies Allergy/AdvReac Type Severity Reaction Status Date / Time cephalexin Allergy Mild Rash Verified 07/08/24 09:27 latex Allergy Mild Rash Verified 07/08/24 09:27 Review of Systems Review of Systems: CONSTITUTIONAL: Denies fever, chills, or sweats. EYES: Denies visual changes, redness, or discharge. Reports redness, swelling and tenderness to left upper eyelid. ENT: Denies rhinorrhea, congestion, sore throat, or otalgia. CARDIOVASCULAR: Denies chest pain, palpitations, or edema. RESPIRATORY: Denies cough or dyspnea. GASTROINTESTINAL: Denies abdominal pain, nausea, vomiting, or diarrhea. GENITOURINARY: Denies dysuria or hematuria. SKIN: Denies rash or itching. MUSCULOSKELETAL: Denies back pain, joint pain, or myalgia. NEUROLOGIC: Denies headache, numbness, or weakness. PSYCHIATRIC: Denies anxiety or depression. All other systems reviewed are negative, except as documented in HPI. [facility] Past Medical History Medical History (Updated 07/08/24 @ 09:42 by Dot Jones NP) Screening for lipoid disorders Anxiety Screening for metabolic disorder Ear pain, right Chronic dysfunction of right eustachian tube Conductive hearing loss in right ear Otitis externa of right ear Acute otitis media, right Chronic nonallergic rhinitis Hypertrophy of both inferior nasal turbinates Diarrhea Constipation Abdominal pain Vaginal delivery Viral illness Hospital discharge follow-up Encounter to establish care Overweight (BMI 25.0-29.9) and not yet delivered Nasal fracture (~11/2022) Allergies Anxiety and depression Eczema UTI (urinary tract infection) Surgical History Surgical History History of dental surgery gums History of placement of ear tubes History of adenoidectomy History of tonsillectomy Family History Family History Father Skin cancer (melanoma) Diabetes mellitus Hypertension Carcinoma of colon Mother Diabetes mellitus Asthma Cervical cancer Hypertension History of blood clots Social History Social History Social History: Caffeine- tea/soda Smoking status: Never smoker Tobacco type: cigarettes Second hand tobacco smoke exposure: No Smoking end date: 12/02/14 Alcohol intake: current Alcohol use details: glass of wine occasionally Substance use: never Substance use type: does not use and marijuana Lack of Transportation: No Lack of Food: Never True Current Housing: I Have Housing Concerned About Future Housing: No Difficulty Paying Gas/Electric Bills: No Difficulty Paying for Meds: No Currently Unemployed: No Education: High School Diploma/GED Difficulty w/ Childcare or Family Care: No Living arrangements: with family Occupation/Education: occupation Gender identity (if verbalized by the patient): Female Sexual Orientation (if Verbalized by the Patient): Straight or Heterosexual Spiritual care concerns: No Comments At time of signature, agree with nursing past medical, surgical, social and family history. There is no relevant family history pertinent to the presenting complaint. Exam Narrative: GENERAL: This is a well-nourished, well-developed patient, in no apparent distress. HEAD: normocephalic, atraumatic. EYES: PERRL. Sclera clear/white. Vision is grossly intact. Erythematous swollen pustule to internal aspect of left upper eyelid with tenderness on palpation EARS: External ears normal NOSE: External nose normal NECK: Neck supple, non-tender without lymphadenopathy, masses or thyromegaly. CARDIOVASCULAR: Regular rate and rhythm without murmurs, gallops, or rubs. RESPIRATORY: Clear to auscultation. Breath sounds equal bilaterally. No wheezes, rales, or rhonchi. SKIN: warm, Dry, intact with no suspicious lesions or rash, good texture and turgor. NEURO: awake, alert, and oriented to person, place and time. There were no obvious focal neurologic abnormalities. EXTREMITIES: No joint tenderness, effusion, or edema noted. Course Course Level of Care: Express Care Visit Vital Signs Vital signs: Vital Signs Temperature 36.4 C 07/08/24 09:23 Pulse Rate 80 07/08/24 09:23 Respiratory Rate 16 07/08/24 09:23 Blood Pressure 117/70 07/08/24 09:23 Pulse Oximetry 99 07/08/24 09:23 Oxygen Delivery Room Air 07/08/24 09:23 Temperature 36.4 C 07/08/24 09:23 Pulse Rate 80 07/08/24 09:23 Respiratory Rate 16 07/08/24 09:23 Blood Pressure 117/70 07/08/24 09:23 Pulse Oximetry 99 07/08/24 09:23 Oxygen Delivery Room Air 07/08/24 09:23 reviewed MDM - Eye Problem MDM Narrative Medical decision making narrative: will treat stye to left upper eyelid with erythromycin ointment. Patient agrees with plan of care. Exam findings show no acute concerns or changes; patient is non-toxic appearing and is in no distress. Patient is appropriate for outpatient treatment and follow-up. Differential Diagnosis Differential diagnosis: Likely corneal abrasion, conjunctivitis, periorbital cellulitis and other ( Hordeolum) Discharge Plan Discharge Clinical Impression: Hordeolum internum left upper eyelid Patient Disposition: Home Condition: Stable Instructions: Antibiotic Form, Erythromycin (Into the eye), Stye (ED) Additional Instructions: Place antibiotic ointment as prescribed. Wash hands before and after. Read over discharge packet on how to place erythromycin ointment into eye. Follow-up with your eye doctor if not improving. Patient Language: Syriac Prescriptions: New erythromycin 5 mg/gram (0.5 %) ointment 1 applic LEFT EYE QID 10 Days Qty: 3.5 0RF No Action buspirone 7.5 mg tablet bupropion HCl 300 mg tablet extended release 24 hr PO bupropion HCl [Wellbutrin XL] 150 mg tablet extended release 24 hr 150 mg PO QAM phentermine 37.5 mg tablet 37.5 mg PO DAILY Qty: 30 2RF Rx Instructions: must administer 30 minutes before or 1-2 hours after breakfast Follow-up/Referrals: Aleksandar Dunn DO [Primary Care Provider] - Time of Disposition: 09:42
== END 2024-07-08 09:44 | disposition home or self-care (01) ==
PROVIDERS: Emergency Provider Nurse Practitioner Family; PCP Internal Medicine
DX: H00.024 Hordeolum internum left upper eyelid (principal); Z87.891 Personal history of nicotine dependence; F41.9 Anxiety disorder, unspecified; F32.A Depression, unspecified
CPT/HCPCS: 99213; G0463

== ENCOUNTER 2025-02-21 19:42 | Emergency (ER) | payer MEDICAID, SELFPAY ==
[2025-02-21] VITALS (7 sets, daily range): BP systolic 93–120; BP diastolic 45–64; PULSE 88; RESP 18; TEMP 36.6; O2SAT 100
[2025-02-21 20:20] LABS: Hematocrit 40.6 % (37.0-47.0); Hemoglobin 14.0 g/dL (12.0-15.0); Immature Granulocyte Percent A 0.3 % (0-0.5); Lymphocytes Absolute Auto 0.38 K/mm3 (0.9-3.2); Mean Corpuscular HGB Conc 34.5 g/dl (32-36); Mean Corpuscular Hemoglobin 30.0 pg (26-34); Mean Corpuscular Volume 86.9 fl (80-100); Nucleated Red Blood Cells Absolute Auto 0.000 K/mm3 (0.0-0.012); Nucleated Red Blood Cells Perc 0.0 % (0.0-0.2); Platelet Count Result 216 k/mm3 (150-375); Red Blood Count 4.67 M/mm3 (4.2-5.4); White Blood Count 6.9 K/mm3 (4.5-10.0)
[2025-02-21 20:33] LABS: Alanine Aminotransferase 21 U/L (6-35); Albumin Level 4.5 g/dL (3.5-5.1); Alkaline Phosphatase 78 U/L (38-126); Anion Gap 9 mmol/L (4-12); Aspartate Amino Transferase 29 U/L (14-36); Bilirubin,Total 0.9 mg/dL (0.2-1.3); Blood Urea Nitrogen 9 mg/dL (7-17); Calcium 9.6 mg/dL (8.4-10.2); Carbon Dioxide 20 mmol/L (22-30); Chloride 104 mmol/L (98-107); Estimated Glomerular Filt Rate > 60; Glucose 98 mg/dL (65-110); Lipase 110 U/L (23-300); Potassium 3.7 mmol/L (3.4-5.0); Sodium 133 mmol/L (137-145); Total Protein 7.4 g/dL (6.3-8.2)
[2025-02-21 20:56] LABS: Influenza A QL RT-PCR Positive (Negative); Influenza B QL RT-PCR Negative (Negative); RSV RNA, RT-PCR Negative (Negative); SARS-CoV-2 RNA PCR Negative (Negative)
[2025-02-21] MEDS: LACTATED RINGERS 1,000 ML 999 ML IV CONT (21:59)
[2025-02-21] MEDS: ONDANSETRON INJ 4 MG/2 ML VIAL IV PUSH (21:59)
[2025-02-21] MEDS: FAMOTIDINE 20 MG/2 ML VIAL IV PUSH (21:59)
--- NOTE | 2025-02-21 22:11 | ED_ITS ---
HPI - Nausea/Vomiting/Diarrhea General Chief complaint: Nausea/Vomiting/Diarrhea Stated complaint: Flu like sx Time Seen by Provider: 02/21/25 21:10 Source: patient Mode of arrival: ambulatory Limitations: no limitations History of Present Illness HPI Narrative: This is a 30 year old female that presents to the ER for nausea, vomiting. Unable to keep much down. Reports body aches, chills. Reports she took a test at home and it was positive. She scheduled an for tomorrow. Related Data Home Medications ?Medication ?Instructions ?Recorded ?Confirmed ?Last Taken ?Type bupropion HCl 150 mg 24 hr tablet, 150 mg PO QAM 12/1507/08/24 Unknown History extended release (Wellbutrin XL) bupropion HCl 300 mg 24 hr tablet, mg PO 07/08/24 Unk nown History extended release buspirone 7.5 mg tablet mg 07/08/24 Unknown History Allergies Allergy/AdvReac Type Severity Reaction Status Date / Time cephalexin Allergy Mild Rash Verified 07/08/24 09:27 latex Allergy Mild Rash Verified 07/08/24 09:27 Review of Systems 2 Review of Systems: All systems reviewed & are unremarkable except as noted in HPI and below PMFSH Past Medical History Medical History (Updated 02/22/25 @ 01:51 by Maribell Wallace PA-C) Screening for lipoid disorders Anxiety Screening for metabolic disorder Ear pain, right Chronic dysfunction of right eustachian tube Conductive hearing loss in right ear Otitis externa of right ear Acute otitis media, right Chronic nonallergic rhinitis Hypertrophy of both inferior nasal turbinates Diarrhea Constipation Abdominal pain Vaginal delivery Viral illness Hospital discharge follow-up Encounter to establish care Overweight (BMI 25.0-29.9) and not yet delivered Nasal fracture (~11/2022) Allergies Anxiety and depression Eczema UTI (urinary tract infection) Surgical History Surgical History History of dental surgery gums History of placement of ear tubes History of adenoidectomy History of tonsillectomy Family History Family History Father Skin cancer (melanoma) Diabetes mellitus Hypertension Carcinoma of colon Mother Diabetes mellitus Asthma Cervical cancer Hypertension History of blood clots Social History Social History Social History: Caffeine- tea/soda Smoking status: Never smoker Tobacco type: cigarettes Second hand tobacco smoke exposure: No Smoking end date: 12/02/14 Alcohol intake: current Alcohol use details: glass of wine occasionally Substance use: never Substance use type: does not use and marijuana Lack of Transportation: No Lack of Food: Never True Current Housing: I Have Housing Concerned About Future Housing: No Difficulty Paying Gas/Electric Bills: No Difficulty Paying for Meds: No Currently Unemployed: No Education: High School Diploma/GED Difficulty w/ Childcare or Family Care: No Living arrangements: with family Occupation/Education: occupation Gender identity (if verbalized by the patient): Female Sexual Orientation (if Verbalized by the Patient): Straight or Heterosexual Spiritual care concerns: No Exam 2 Narrative: GENERAL: Well-appearing, well-nourished, and in no acute distress. HEAD: Normocephalic, atraumatic. EYES: EOMI. ENT: Nares clear, no rhinorrhea or epistaxis. Mucous membranes moist. Oropharynx without tonsillar hypertrophy exudate or other lesions. CHEST: Clear to auscultation. No respiratory distress. No wheezes rales or rhonchi HEART: Regular rate and rhythm. No murmur heard. Normal peripheral pulses. ABDOMEN: Soft, nontender, nondistended, normal active bowel sounds. EXTREMITIES: Normal range of motion. No edema. SKIN: Warm, dry, no rash. NEURO: No focal deficits. Alert and oriented x3. PSYCH: Normal mood and affect Course Vital Signs Vital signs: Vital Signs Temperature 97.8 F 02/21/25 19:49 Pulse Rate 88 02/21/25 19:49 Respiratory Rate 18 02/21/25 19:49 Blood Pressure 120/64 02/21/25 19:49 Pulse Oximetry 100 02/21/25 19:49 Oxygen Delivery Room Air 02/21/25 19:49 Temperature 97.8 F 02/21/25 19:49 Pulse Rate 88 02/21/25 19:49 Respiratory Rate 18 02/21/25 19:49 Blood Pressure 110/61 02/21/25 21:31 Pulse Oximetry 100 02/21/25 21:31 Oxygen Delivery Room Air 02/21/25 19:49 MDM MDM Narrative Medical decision making narrative: Patient presents to the emergency department for nausea, vomiting, chills. Reporting a positive home test. She is afebrile and nontoxic appearing. Her vitals are stable. Cbc and metabolic panel without concerning findings. Urine without evidence of infection. Patient is influenza A positive. Quantitative beta-hCG 17,795. Patient reports she had scheduled an tomorrow, this is an unwanted . Will be started on Tamiflu. Follow up for further management of her Differential Diagnosis Differential Diagnosis: Influenza, COVID, dehydration, Lab Data [facility] Lab Attestation statement: I personally reviewed the patient's lab results. 02/21/25 20:03 02/21/25 20:03 Labs: Lab Results 02/21/25 02/21/25 Range/Units 20:03 23:30 WBC 6.9 (4.5-10.0) K/mm3 RBC 4.67 (4.2-5.4) M/mm3 Hgb 14.0 (12.0-15.0) g/dL Hct 40.6 (37.0-47.0) % MCV 86.9 (80-100) fl MCH 30.0 (26-34) pg MCHC 34.5 (32-36) g/dl RDW 13.6 (11.5-14.5) % Plt Count 216 (150-375) k/mm3 MPV 9.8 (7.4-10.4) fl Immature Gran % (Auto) 0.3 (0-0.5) % Neut % (Auto) 83.8 H (45.5-73.1) % Lymph % (Auto) 5.5 L (18.3-44.2) % Floyd % (Auto) 9.6 H (2.6-8.5) % Eos % (Auto) 0.4 (0-4.4) % Baso % (Auto) 0.4 (0.2-1.2) % Lymph # (Auto) 0.38 L (0.9-3.2) K/mm3 Floyd # (Auto) 0.7 H (0.1-0.6) K/mm3 Eos # (Auto) 0.0 (0-0.3) K/mm3 Baso # (Auto) 0.0 (0.0-0.1) K/mm3 Abs Immat Gran (auto) 0.02 (0.00-0.031) K/mm3 Absolute Neuts (auto) 5.8 (1.3-6.7) K/mm3 Absolute Nucleated RBC 0.000 (0.0-0.012) K/mm3 Nucleated RBC % 0.0 (0.0-0.2) % Sodium 133 L (137-145) mmol/L Potassium 3.7 (3.4-5.0) mmol/L Chloride 104 (98-107) mmol/L Carbon Dioxide 20 L (22-30) mmol/L Anion Gap 9 (4-12) mmol/L BUN 9 (7-17) mg/dL Creatinine 0.60 L (0.7-1.0) mg/dL Estim Creat Clear Calc Not Reportable Estimated GFR > 60 (59 - ) Glucose 98 (65-110) mg/dL Calcium 9.6 (8.4-10.2) mg/dL Total Bilirubin 0.9 (0.2-1.3) mg/dL AST 29 (14-36) U/L ALT 21 (6-35) U/L Alkaline Phosphatase 78 (38-126) U/L Total Protein 7.4 (6.3-8.2) g/dL Albumin 4.5 (3.5-5.1) g/dL Lipase 110 (23-300) U/L Beta HCG, Quant 90859.00 mIU/ML Urine Color Yellow (Yellow) Urine Appearance Clear (Clear) Urine pH 8.5 (5.0-9.0) Ur Specific Whiting 1.027 (1.001-1.035) Urine Protein Trace (Negative) mg/dL Urine Glucose (UA) Negative (Negative) mg/dL Urine Ketones 4+ H (Negative) mg/dL Ur Blood (Man) Negative (Negative) Urine Nitrate Negative (Negative) Urine Bilirubin Negative (Negative) Urine Urobilinogen 1.0 (<2.0) mg/dL Add Ur Microanalysis Reviewed Leukocyte Esterase Rfl Negative (Negative) KAHLIL/UL Urine RBC 6-10 H (0-2) /hpf Urine WBC 0-5 (0-3) /hpf Ur Squamous Epith Cells None seen (Few) /hpf Urine Bacteria None seen /hpf Urine Casts 0-2 Influenza A (RT-PCR) Positive A (Negative) Influenza B (RT-PCR) Negative (Negative) RSV (RT-PCR) Negative (Negative) SARS-CoV-2 RNA (RT-PCR) Negative (Negative) Critical Care Time Critical Care Time Critical Care Time: No Discharge Plan Discharge Clinical Impression: Influenza A, Positive test Patient Disposition: Home Condition: Improved Instructions: (ED), Influenza (ED) Additional Instructions: Return to the ER if you experience fever, chest pain, shortness of breath, abdominal pain with nausea and vomiting, you are unable to keep down liquids or solids, pelvic cramping, vaginal bleeding, or any other symptoms that are concerning to you Small, frequent meals. Allen diet. Remain well hydrated. Take Tamiflu as prescribed. Ondansetron as needed for nausea Follow up with your primary care doctor Patient Language: German Prescriptions: New ondansetron 4 mg tablet,disintegrating 4 mg PO Q6H PRN (Reason: nausea and vomiting) Qty: 10 0RF oseltamivir 75 mg capsule 75 mg PO Q12H 5 Days Qty: 10 0RF No Action buspirone 7.5 mg tablet bupropion HCl 300 mg tablet extended release 24 hr PO erythromycin 5 mg/gram (0.5 %) ointment 1 applic LEFT EYE QID 10 Days Qty: 3.5 0RF bupropion HCl [Wellbutrin XL] 150 mg tablet extended release 24 hr 150 mg PO QAM phentermine 37.5 mg tablet 37.5 mg PO DAILY Qty: 30 2RF Rx Instructions: must administer 30 minutes before or 1-2 hours after breakfast Follow-up/Referrals: Aleksandar Dunn DO [Primary Care Provider, Internal Medicine]
[2025-02-22 00:06] LABS: Add Urine Microscopic? YES; Appearance Urine Clear (Clear); Glucose Urine UA Negative (Negative); Leukocyte Esterase Ur Negative LEU/UL (Negative); Need Manual Microscopic Reviewed; Nitrate Urine Negative (Negative); Non Pathogenic Casts 0-2; Specific Grav Ur 1.027 (1.001-1.035)
[2025-02-22] MEDS: METOCLOPRAMIDE HCL INJ 10 MG/2 ML VIAL IV PUSH (00:52)
[2025-02-22] MEDS: LACTATED RINGERS 1,000 ML 999 ML IV CONT (00:52)
== END 2025-02-22 03:34 | disposition home or self-care (01) ==
PROVIDERS: Emergency Medicine; Emergency Provider Physician Assistant; PCP Internal Medicine
DX: O99.511 Diseases of the respiratory system complicating pregnancy, first trimester (principal); J10.1 Influenza due to other identified influenza virus with other respiratory manifestations; Z20.822 Contact with and (suspected) exposure to COVID-19; O99.341 Other mental disorders complicating pregnancy, first trimester; F41.9 Anxiety disorder, unspecified; F32.A Depression, unspecified; Z87.440 Personal history of urinary (tract) infections; Z87.891 Personal history of nicotine dependence
CPT/HCPCS: 36415; 80053; 81001; 83690; 84702; 85025; 87637; 96361; 96374; 96375; 99284; J1200; J2405; J2765; J7120

== ENCOUNTER 2025-02-27 10:50 | Emergency (ER) | payer MEDICAID, SELFPAY ==
--- NOTE | 2025-02-27 10:53 | ED.URI ---
HPI - URI/Sore Throat General Chief Complaint: Ear Stated Complaint: left ear pain Time Seen by Provider: 02/27/25 11:05 Source: patient, RN notes reviewed and old records reviewed Mode of arrival: ambulatory Limitations: no limitations History of Present Illness HPI Narrative: Sakina is a 30-year-old female patient presenting to the clinic today with complaints of left ear pain. She was seen in the ER on February 21 and diagnosed with influenza A and a positive test. States over the last day or 2 she has developed left ear pain. Denies any fevers, chills, body aches at this time. Denies any shortness of breath or chest pain. Related Data Home Medications ?Medication ?Instructions ?Recorded ?Confirmed ?Last Taken ?Type fluoxetine 20 mg capsule mg 02/27/25 Unknown History lisdexamfetamine 40 mg capsule mg 02/27/25 Unknown History (Vyvanse) Allergies Allergy/AdvReac Type Severity Reaction Status Date / Time cephalexin Allergy Mild Rash Verified 02/27/25 11:23 latex Allergy Mild Rash Verified 02/27/25 11:23 Review of Systems Review of Systems: Pertinent positives per HPI. Patient denies any fever, chills, rash, headache, visual changes, dizziness, cough, shortness of breath, chest pain, palpitations, nausea, vomiting, diarrhea, constipation, abdominal pain, or any urinary issues. [facility] Past Medical History Medical History Screening for lipoid disorders Anxiety Screening for metabolic disorder Ear pain, right Chronic dysfunction of right eustachian tube Conductive hearing loss in right ear Otitis externa of right ear Acute otitis media, right Chronic nonallergic rhinitis Hypertrophy of both inferior nasal turbinates Diarrhea Constipation Abdominal pain Vaginal delivery Viral illness Hospital discharge follow-up Encounter to establish care Overweight (BMI 25.0-29.9) and not yet delivered Nasal fracture (~11/2022) Allergies Anxiety and depression Eczema UTI (urinary tract infection) Surgical History Surgical History History of dental surgery gums History of placement of ear tubes History of adenoidectomy History of tonsillectomy Family History Family History Father Skin cancer (melanoma) Diabetes mellitus Hypertension Carcinoma of colon Mother Diabetes mellitus Asthma Cervical cancer Hypertension History of blood clots Social History Social History Social History: Caffeine- tea/soda Smoking status: Never smoker Tobacco type: cigarettes Second hand tobacco smoke exposure: No Smoking end date: 12/02/14 Alcohol intake: current Alcohol use details: glass of wine occasionally Substance use: never Substance use type: does not use and marijuana Lack of Transportation: No Lack of Food: Never True Current Housing: I Have Housing Concerned About Future Housing: No Difficulty Paying Gas/Electric Bills: No Difficulty Paying for Meds: No Currently Unemployed: No Education: High School Diploma/GED Difficulty w/ Childcare or Family Care: No Living arrangements: with family Occupation/Education: occupation Gender identity (if verbalized by the patient): Female Sexual Orientation (if Verbalized by the Patient): Straight or Heterosexual Spiritual care concerns: No Comments At the time of my signature, I reviewed and agree with the nursing past medical, surgical, social, and family history. There is no relevant family history pertinent to the patient complaint. Exam Narrative: General: Well-developed, well nourished, in no apparent distress Head: Normocephalic, atraumatic Eyes: Pupils equally round and reactive to light bilaterally, EOM intact, sclera and conjunctive clear, no discharge, lids normal Ears: Right TMs intact and clear, Left TM intact, bulging, red ear canals clear, no drainage, grossly hearing normal. Nose: Nares patent, clear nasal discharge, no inflammation, no sinus tenderness. Mouth: Oral pharynx without lesions or masses, good dentition, MMM. Neck: Supple, trachea midline, no enlargement of anterior or posterior cervical nodes, no thyroid masses or goiter palpable. Cardio: Regular rate and rhythm, s1 and s2 normal, no murmur appreciated. Resp: Clear to auscultation bilaterally, no rhonchi, rales, wheezing or rubs Course Course Level of Care: Express Care Visit Vital Signs Vital signs: Vital Signs Temperature 36.2 C L 02/27/25 10:59 Pulse Rate 72 02/27/25 10:59 Respiratory Rate 18 02/27/25 10:59 Blood Pressure 130/57 L 02/27/25 10:59 Pulse Oximetry 100 02/27/25 10:59 Oxygen Delivery Room Air 02/27/25 10:59 Temperature 36.2 C L 02/27/25 10:59 Pulse Rate 72 02/27/25 10:59 Respiratory Rate 18 02/27/25 10:59 Blood Pressure 130/57 L 02/27/25 10:59 Pulse Oximetry 100 02/27/25 10:59 Oxygen Delivery Room Air 02/27/25 10:59 MDM MDM Narrative Medical decision making narrative: At the time of visit patient is resting comfortably on the exam table. Patient appears to be nontoxic. Complaints of left ear pain. She was seen in the ER on February 21 and diagnosed with influenza A and a positive test. States over the last day or 2 she has developed left ear pain. Denies any fevers, chills, body aches at this time. Denies any shortness of breath or chest pain. On exam patient has right TM intact and clear, left TM intact, bulging, red, nasal drainage, no anterior turbinate inflammation, oral pharynx normal, no cervical lymphadenopathy, lung sounds are clear, heart rates regular rate and rhythm. Plan: I suspect patient has left otitis media. Prescription for amoxicillin was sent to the pharmacy. Allergies to cephalexin but has taken amoxicillin in the past without reaction. Supportive measures were discussed with the patient and they voiced understanding discharge instructions and agrees to treatment plan. Return precautions reviewed Differential Diagnosis Differential Diagnosis: Differential diagnostic considerations for upper respiratory infection include upper respiratory infection, croup, otitis media, sinusitis, viral infection, bronchitis, influenza, pharyngitis, strep, uvulitis. Discharge Plan Discharge Clinical Impression: Acute left otitis media Patient Disposition: Home Condition: Stable Instructions: Antibiotic Form, Ear Infection (ED) Additional Instructions: Increase fluids and stay well hydrated Take any prescribed medications only as directed-amoxicillin Tylenol/motrin as needed for pain May use heating pad to alleviate pain If you get recurrent ear infections it may be warranted to follow up with ENT. Follow up with your PCP in 3-5 days if symptoms persist. Patient Language: Swiss Prescriptions: New amoxicillin 875 mg tablet 875 mg PO Q12H 7 Days Qty: 14 0RF No Action fluoxetine 20 mg capsule lisdexamfetamine [Vyvanse] 40 mg capsule ondansetron 4 mg tablet,disintegrating 4 mg PO Q6H PRN (Reason: nausea and vomiting) Qty: 10 0RF oseltamivir 75 mg capsule 75 mg PO Q12H 5 Days Qty: 10 0RF Follow-up/Referrals: Aleksandar Dunn DO [Primary Care Provider, Internal Medicine] Time of Disposition: 11:04 Quality NIHSS Nursing Documentation ED NIHSS nursing documentation: reviewed/agree
[2025-02-27 10:59] VITALS: BP 130/57; PULSE 72; RESP 18; TEMP 36.2; O2SAT 100
== END 2025-02-27 11:15 | disposition home or self-care (01) ==
PROVIDERS: Emergency Provider Nurse Practitioner Family; PCP Internal Medicine
DX: H66.92 Otitis media, unspecified, left ear (principal)
CPT/HCPCS: 99213; G0463